=== PATIENT | female | born 1950 | race Caucasian/White ===

== ENCOUNTER 2016-06-20 11:52 | Inpatient (IN) | payer OTHER ==
[~2016-06-20] VITALS: Ht 167.6 cm; Wt 66.1 kg
[2016-06-20] MEDS: INSULIN ASPART [NOVOLOG] 3 ML PEN SC SCH ×2 (01:17→18:00)
[2016-06-20 12:00] VITALS: Ht 167.6 cm; Wt 66.1 kg
[2016-06-20] MEDS ORDERED: FAMOTIDINE 20 MG INJ IV STA (14:29)
[2016-06-20] MEDS ORDERED: SOD CHLORIDE 0.9% 1,000 ML IV STA (14:29)
[2016-06-20] MEDS ORDERED: ONDANSETRON 4 MG INJ IV STA (14:29)
[2016-06-20] MEDS ORDERED: SODIUM CHLORIDE 0.9% 1L BAG IV* STA (14:29)
[2016-06-20] MEDS ORDERED: ACETAMINOPHEN 500 MG TAB PO STA (14:31)
[2016-06-20] MEDS ORDERED: ASPI-664 PO (15:02)
[2016-06-20] MEDS ORDERED: GLIP-95 PO (15:02)
[2016-06-20] MEDS ORDERED: SITA1TAB5 PO (15:03)
[2016-06-20] MEDS ORDERED: EMPA10TA PO (15:04)
[2016-06-20 15:05] LABS: ADD SCAN DIFF NO
--- NOTE | 2016-06-20 15:05 | RADRPT ---
PROCEDURE: XR Chest. CLINICAL INDICATION: Shortness of breath. Sepsis. TECHNIQUE: Single frontal view. COMPARISON: 07/10/2008. FINDINGS: The lungs are clear. The heart size is normal. There is no pleural effusion. There is no pneumothorax. IMPRESSION: 1. Normal chest radiograph. RPTAT: QQ .Nate Fuentes MD, MD Date Time Electronically viewed and signed by .Nate Fuentes MD, on 06/20/2016 15:05 .R/
[2016-06-20 15:09] LABS: ABNORMAL IP MESSAGE 1; HEMOGLOBIN 11.8 g/dl (12.0-16.0); MEAN CORPUSCULAR HEMOGLOBIN 29.4 pg (29.0-33.0); MEAN CORPUSCULAR HGB CONC 33.7 g/dl (32.0-37.0); MEAN CORPUSCULAR VOLUME 87.1 fl (82.0-101.0); MEAN PLATELET VOLUME 11.3 fl (7.4-10.4); PLATELET COUNT 207 10^3/UL (140-415); RED BLOOD COUNT 4.02 10^6/ul (4.20-5.40); RED CELL DISTRIBUTION WIDTH 14.6 % (11.5-14.5); WHITE BLOOD COUNT 14.2 10^3/ul (4.8-10.8)
[2016-06-20 15:25] LABS: ALBUMIN 4.1 g/dl (3.3-4.9)
[2016-06-20 15:26] LABS: CHLORIDE 92 mmol/L (97-110); POTASSIUM 4.1 mmol/L (3.5-5.1); SODIUM 134 mmol/L (135-144)
[2016-06-20 15:27] LABS: ADD UMIC YES; URINE BILIRUBIN (Dip) NEGATIVE (NEGATIVE); URINE BLOOD (Dip) 2+ (NEGATIVE); URINE COLOR LT. YELLOW (YELLOW); URINE KETONES (Dip) NEGATIVE (NEGATIVE); URINE LEUKOCYTE ESTERASE (Dip) 2+ (NEGATIVE); URINE NITRITE (Dip) NEGATIVE (NEGATIVE); URINE TOTAL PROTEIN (Dip) 2+ (NEGATIVE); URINE UROBILINOGEN (Dip) 0.2 E.U./dL (0.1-1.0)
[2016-06-20 15:28] LABS: BILIRUBIN,INDIRECT 0.3 mg/dl (0-1.1); BILIRUBIN,TOTAL 0.3 mg/dl (0.2-1.3); CREATININE 1.43 mg/dl (0.44-1.00)
[2016-06-20 15:29] LABS: ALANINE AMINOTRANSFERASE 22 IU/L (13-69); ALBUMIN/GLOBULIN RATIO 1.07; ALKALINE PHOSPHATASE 148 IU/L (42-121); ANION GAP 21 (8-16); ASPARTATE AMINO TRANSFERASE 32 IU/L (15-46); BLOOD UREA NITROGEN 36 mg/dl (7-20); CALCIUM 9.7 mg/dl (8.4-10.2); CARBON DIOXIDE 25 mmol/L (21-31); CREATINE KINASE 95 IU/L (23-200); GLUCOSE 346 mg/dl (70-220); TOTAL PROTEIN 7.9 g/dl (6.1-8.1)
[2016-06-20 15:32] LABS: INR 1.12; PROTIME 14.4 Sec (12.2-14.2); PT RATIO 1.1
[2016-06-20 15:33] LABS: PARTIAL THROMBOPLASTIN TIME 38.3 Sec (25.0-35.0)
[2016-06-20 15:44] LABS: BACTERIA,URINE MANY; TROPONIN-I < 0.012 ng/ml (0.00-0.12)
[2016-06-20] MEDS ORDERED: CEFTRIAXONE 1 GM/50 ML (PMX) 50 ML IVPB ONE (16:00)
[2016-06-20 16:06] LABS: LYMPHOCYTES # 0.4 10^3/ul (0.8-2.9); MONOCYTE # 0.1 10^3/ul (0.3-0.9); NEUTROPHIL # 13.1 10^3/ul (1.6-7.5); PLATELET ESTIMATE PLT APPEAR ADEQUATE
[2016-06-20] MEDS ORDERED: SOD CHLORIDE 0.9% 1,000 ML IV SCH (17:23)
--- NOTE | 2016-06-20 17:28 | ERA ---
ER Documentation Chief Complaint Date/Time DATE: 06/20/16 TIME: 17:25 Chief Complaint abdominal pain with n/v x 3 days HPI This is a 65-year-old female who presents to the emergency room for evaluation of abdominal pain, nausea and vomiting for the past 3 days. The patient localizes her abdominal pain to the lower portion of abdomen describes as an achy pain. The patient states that her vomiting mildly relieves her abdominal pain. She denies any radiation of the pain and came to the ER for evaluation. She does state that she has been feeling weaker than normal over the past week, states that she has had chills. ROS All systems reviewed and are negative except as per history of present illness. Medications Home Meds Reported Medications Empagliflozin (Jardiance) 10 Mg Tablet, 10 MG PO DAILY, TAB 06/20/16 Sitagliptin Phos/Metformin HCl (Janumet 50-1,000 mg Tablet) 1 Each Tablet, 1 EACH PO BID, TAB 06/20/16 Aspirin* (Aspirin* EC) 81 Mg Tablet.dr, 81 MG PO DAILY, TAB 06/20/16 Glipizide* (Glipizide*) 10 Mg Tablet, 20 MG PO BID, TAB 06/20/16 Allergies Allergies: Coded Allergies: No Known Allergy (Unverified , 06/20/16) PMhx/Soc History of Surgery: Yes (mastectomy (left side)) Anesthesia Reaction: No Hx Neurological Disorder: No Hx Respiratory Disorders: No Hx Cardiac Disorders: No Hx Psychiatric Problems: No Hx Miscellaneous Medical Probl: Yes (Breast cancer, diabetes) Hx Alcohol Use: No Hx Substance Use: No Hx Tobacco Use: No Smoking Status: Never smoker Physical Exam Vitals Vital Signs Date Time Temp Pulse Resp B/P Pulse Ox O2 Delivery O2 Flow Rate FiO2 06/20/16 15:39 99.7 82 16 115/62 95 Room Air 06/20/16 15:01 Nasal Cannula 2 06/20/16 12:00 102.5 115 20 119/65 95 Physical Exam INITIAL VITAL SIGNS: Reviewed by me GENERAL: The patient is well developed and appropriate for usual state of health in no apparent distress HEENT: Dry mucous members, pupils equal, round, and reactive to light. EOMI. There is no scleral icterus. NECK: C-spine is soft and supple, there is no meningismus. There is no cervical lymphadenopathy. LUNGS: Clear to auscultation bilaterally. There are no rales, wheezes or rhonchi. HEART: Tachycardic, no murmurs, clicks, rubs or gallops. ABDOMEN: Suprapubic tenderness to palpation, soft, non-tender, non-distended. There are bowel sounds in all four quadrants. No rebound or guarding. EXTREMITIES: There is no peripheral cyanosis or edema. No focal swelling or erythema. NEUROLOGICAL: The patient moves all four extremities with 5/5 strength. Cranial nerves II - XII are intact. Normal gait. Alert and oriented SKIN: There is no apparent rash or petechiae. HEME/LYMPHATIC: There is no evidence of excessive bruising or lymphedema. PSYCHIATRIC: The patient does not appear anxious or depressed. Result Diagram: 06/20/16 1450 06/20/16 1450 Results 24 hrs Laboratory Tests Test 06/20/16 14:50 06/20/16 14:52 White Blood Count 14.210^3/ul Red Blood Count 4.0210^6/ul Hemoglobin 11.8g/dl Hematocrit 35.0% Mean Corpuscular Volume 87.1fl Mean Corpuscular Hemoglobin 29.4pg Mean Corpuscular Hemoglobin Concent 33.7g/dl Red Cell Distribution Width 14.6% Platelet Count 41609^3/UL Mean Platelet Volume 11.3fl Neutrophils % 92.0% Band Neutrophils % 4.0% Lymphocytes % 3.0% Monocytes % 1.0% Eosinophils % % Neutrophils # 13.110^3/ul Lymphocytes # 0.410^3/ul Monocytes # 0.110^3/ul Eosinophils # 10^3/ul Platelet Estimate PLT APPEAR ADEQUATE Prothrombin Time 14.4Sec Prothrombin Time Ratio 1.1 INR International Normalized Ratio 1.12 Activated Partial Thromboplast Time 38.3Sec Urine Color LT. YELLOW Urine Clarity CLOUDY Urine pH 5.5 Urine Specific Mcgraws 1.025 Urine Ketones NEGATIVE Urine Nitrite NEGATIVE Urine Bilirubin NEGATIVE Urine Urobilinogen 0.2 E.U./dL Urine Leukocyte Esterase 2+ Urine Microscopic RBC 5-10/HPF Urine Microscopic WBC >200/HPF Urine Epithelial Cells FEW Urine Bacteria MANY Urine Hemoglobin 2+ Urine Glucose 0.5%% Urine Total Protein 2+ Sodium Level 134mmol/L Potassium Level 4.1mmol/L Chloride Level 92mmol/L Carbon Dioxide Level 25mmol/L Anion Gap 21 Blood Urea Nitrogen 36mg/dl Creatinine 1.43mg/dl Glucose Level 346mg/dl Calcium Level 9.7mg/dl Total Bilirubin 0.3mg/dl Direct Bilirubin 0.00mg/dl Indirect Bilirubin 0.3mg/dl Aspartate Amino Transf (AST/SGOT) 32IU/L Alanine Aminotransferase (ALT/SGPT) 22IU/L Alkaline Phosphatase 148IU/L Creatine Kinase 95IU/L Troponin I < 0.012ng/ml Total Protein 7.9g/dl Albumin 4.1g/dl Globulin 3.80g/dl Albumin/Globulin Ratio 1.07 Lactic Acid Level 1.9mmol/L Current Medications Medications (Trade) Dose Ordered Sig/Rc Route PRN Reason Start Time Stop Time Status Last Admin Dose Admin Sodium Chloride 1950 ml 1,950 ml BOLUS OVER 2 HOURS STAT IV* 06/20/16 14:29 06/20/16 14:31 DC Sodium Chloride (NS) 1,000 ml @ 1,000 mls/hr Q1H STAT IV 06/20/16 14:29 06/20/16 15:28 DC 06/20/16 15:08 Ondansetron HCl (Zofran Inj) 4 mg ONCE STAT IV 06/20/16 14:29 06/20/16 14:38 DC 06/20/16 15:08 Famotidine (Pepcid Iv) 20 mg ONCE STAT IV 06/20/16 14:29 06/20/16 14:38 DC 06/20/16 15:08 Acetaminophen 1000 mg 1,000 mg ONCE STAT PO 06/20/16 14:31 06/20/16 14:38 DC 06/20/16 15:08 Ceftriaxone Sodium (Rocephin) 50 ml @ 100 mls/hr ONCE ONCE IVPB 06/20/16 16:00 06/20/16 16:29 DC 06/20/16 15:57 Procedures/MDM EKG: Rate/Rhythm: [Normal Sinus Rhythm] QRS, ST, T-waves: [No changes consistent w/ acute ischemia] Impression: [No evidence of ischemia or arrhythmia] Chest X-ray 1V Interpreted by me: Soft Tissue: No acute abnormalities Bones: No acute abnormalities Mediastinum/Cardiac Silhouette/Lungs: [No acute abnormalities] This 65-year-old female presents to the emergency room for evaluation of abdominal pain. When I evaluated this patient she was febrile and tachycardic. She did have a mild suprapubic tenderness to palpation on my examination. A septic workup was started on this patient. She was given greater than 30 cc/kg of IV normal saline. The patient was found to have urinary tract infection with a leukocytosis. Given this patient's fever, tachycardia, and leukocytosis with source of infection she does meet sepsis criteria. The patient was started on Rocephin after blood and urine cultures were obtained. She has no signs of CVAT or flank pain. The patient will be placed in for admission at this time for sepsis secondary to UTI. There is no need for vasopressors as she is hemodynamically stable with a mean arterial pressure greater than 65. This patient will be placed in for admission under the care of her panel physician, Dr. White Critical Care: Excluding billable procedures Time: 38 minutes Treatments/Evaluations: Close monitoring and treatment of unstable vital signs, cardiorespiratory, and neurologic status, while maintaining tight balance of fluid, respiratory, and cardiac interventions. Departure Diagnosis: Primary Impression: Sepsis Additional Impressions: Acute cystitis Renal insufficiency Normocytic anemia Uncontrolled diabetes mellitus Condition: Stable BAN BUNCH DO Jun 20, 2016 17:28
[2016-06-20] MEDS ORDERED: ACETAMINOPHEN 325 MG TAB PO PRN (17:30)
[2016-06-20] MEDS ORDERED: ONDANSETRON 4 MG INJ IV PRN ×2 (17:30→18:00)
[2016-06-20] MEDS ORDERED: INSULIN REGULAR, HUMAN 100 UNIT/1 ML 3ML VIAL SC ONE (17:30)
[2016-06-20] MEDS: SOD CHLORIDE 0.9% 1,000 ML IV SCH ×2 (18:00→23:33)
[2016-06-20] MEDS: glipiZIDE 10 MG TAB PO SCH (18:53)
[2016-06-20] MEDS ORDERED: GLUCAGON 1 MG INJ IM PRN (19:00)
[2016-06-20] MEDS ORDERED: GLUCOSE GEL 15 GRAM TUBE BUCCAL PRN (19:00)
[2016-06-20] MEDS ORDERED: GLUCOSE GEL 15 GRAM TUBE PO PRN ×2 (19:00)
[2016-06-20] MEDS ORDERED: DEXTROSE 50% 50 ML SYRINGE IV PRN ×2 (19:00)
--- NOTE | 2016-06-20 19:07 | HP ---
DATE OF ADMISSION: 06/20/2016 PRESENTING COMPLAINT: Abdominal pain, fever and chills. HISTORY OF PRESENTING COMPLAINT: A 65-year-old female with past medical history of diabetes and lef t-sided breast cancer status post radical mastectomy, about 28 years ago, who was brought to the [facility] room today with her because of chills and diffuse abdominal pain that has been going on for the last 3 days. The pain is diffusely around the abdomen, associated with a lot of nausea a nd vomiting, but no diarrhea, no blood in her stools. She has not had fever, but she has had chills . She had no passing out episodes. No headaches, no syncopal episode, no vision changes, no focal extremity weakness. There is no lower extremity swelling. REVIEW OF SYSTEMS: A 12-point review of system was done. Pertinent findings are as noted in HPI. PAST MEDICAL HISTORY: Diabetes and breast cancer status post left-sided radical mastectomy and chem o. She has been breast cancer free since. PAST SURGICAL HISTORY: As above. ALLERGIES: NO KNOWN DRUG ALLERGIES. SOCIAL HISTORY: Denies tobacco, alcohol or illicit drug use. FAMILY HISTORY: Noncontributory. REVIEW OF SYSTEMS: See HPI. HOME MEDICATIONS: The patient takes: 1. Aspirin 81 daily. 2. Jardiance 10 mg daily. 3. Glipizide 10 mg p.o. b.i.d. PHYSICAL EXAMINATION: VITAL SIGNS: Temperature 99.7 at this time. T-max of 102.5, pulse 77, respirations 16, blood press ure 119/58, saturations 100% on oxygen via nasal cannula at 2 liters a minute. GENERAL: ill looking female, alert, oriented. HEENT: Head is normocephalic. Pupils are equal and reactive. Mucous membranes dry. Posterior pha rynx clear of exudate. NECK: Supple, no JVD. CHEST: Clear to auscultation. Reduced air entry bilaterally. CARDIOVASCULAR: S1, S2, no murmurs. ABDOMEN: Diffusely soft, not overtly tender, it is sore. Normoactive bowel sounds. No distention. Not an acute abdomen. LOWER EXTREMITIES: Negative for edema. SKIN: Without rash or jaundice. PSYCHIATRIC: Anxious. LABORATORY VALUES: Leukocytosis of 14,000, anemia of 11 with hemoglobin of 11 and normal platelet count. She has 4% bandemia, 92% neutrophilia. Chemistry: Sodium is low at 134, creatinine is newl y bumped at 1.4, glucose is elevated at 346. Lactic acid is normal. LFTs are unremarkable except f or an alkaline phosphatase of 148, troponin was negative. Urinalysis is strongly suggestive of a UT I. Coagulation profile unremarkable. IMAGING: Chest x-ray shows normal chest radiograph. IMPRESSION: A 65-year-old female with: 1. Sepsis with bandemia secondary to urinary tract infection. 2. Diabetes mellitus with suboptimal control. 3. New onset acute renal insufficiency, 4. Chronic normocytic anemia. 5. History of breast cancer status post radical mastectomy for which she has been cancer free for a bout 28 years. PLAN: Admit the patient to medical surgical floor, aggressive IV hydration and broad spectrum anti biotics, send for blood as well as urine cultures. Continue home hypoglycemics. Titrate in house as indicated. An 1800 calorie diet. Avoid nephrotoxic drugs and renally dose all meds for now. Fo r prophylaxis, she will be on Pepcid and Lovenox. Dictated By: MARCIA ART MD BA/NTS Conf#: [id number] DID#: [id number]
[2016-06-20] MEDS: METOCLOPRAMIDE 10 MG INJ IV SCH ×2 (19:46→23:47)
[2016-06-20] MEDS ORDERED: hydrALAzine 20 MG INJ ONE (20:35)
[2016-06-20] MEDS ORDERED: hydrALAzine 20 MG INJ IV ONE (21:00)
[2016-06-20] MEDS: ACETAMINOPHEN 325 MG TAB PO PRN (21:13)
[2016-06-20 23:13] VITALS: TEMP 100.9
[2016-06-20] MEDS: FAMOTIDINE 20 MG TAB PO SCH (23:47)
[2016-06-20] MEDS: DOCUSATE SODIUM 100 MG CAP PO SCH (23:47)
[2016-06-21 00:58] VITALS: BP 108/55; PULSE 98; RESP 18
[2016-06-21] MEDS: INSULIN ASPART [NOVOLOG] 3 ML PEN SC SCH ×5 (01:17→20:45)
[2016-06-21] MEDS: METOCLOPRAMIDE 10 MG INJ IV SCH ×4 (05:19→23:29)
[2016-06-21 07:35] VITALS: BP 143/66; RESP 18
[2016-06-21] MEDS: glipiZIDE 10 MG TAB PO SCH ×2 (08:14→17:50)
[2016-06-21] MEDS: ACETAMINOPHEN 325 MG TAB PO PRN ×3 (08:18→23:31)
[2016-06-21] MEDS: FAMOTIDINE 20 MG TAB PO SCH ×2 (08:55→20:44)
[2016-06-21] MEDS: ASPIRIN (EC) 81 MG TAB PO SCH (08:55)
[2016-06-21] MEDS: ENOXAPARIN 30 MG/0.3 ML SYG SC SCH (08:56)
[2016-06-21] MEDS: DOCUSATE SODIUM 100 MG CAP PO SCH ×2 (08:56→20:44)
[2016-06-21] MEDS ORDERED: EMPAGLIFLOZIN 10 MG TABLET PO SCH (09:00)
[2016-06-21 10:22] LABS: ADD SCAN DIFF NO
[2016-06-21 10:26] LABS: ABNORMAL IP MESSAGE 1; HEMATOCRIT 30.8 % (37.0-47.0); HEMOGLOBIN 10.1 g/dl (12.0-16.0); MEAN CORPUSCULAR HGB CONC 32.8 g/dl (32.0-37.0); MEAN CORPUSCULAR VOLUME 88.5 fl (82.0-101.0); MEAN PLATELET VOLUME 11.4 fl (7.4-10.4); PLATELET COUNT 157 10^3/UL (140-415); RED BLOOD COUNT 3.48 10^6/ul (4.20-5.40); RED CELL DISTRIBUTION WIDTH 15.1 % (11.5-14.5); WHITE BLOOD COUNT 10.8 10^3/ul (4.8-10.8)
[2016-06-21 10:33] LABS: ALBUMIN 3.2 g/dl (3.3-4.9)
[2016-06-21 10:34] LABS: POTASSIUM 3.9 mmol/L (3.5-5.1)
[2016-06-21 10:36] LABS: BILIRUBIN,INDIRECT 0.3 mg/dl (0-1.1); BILIRUBIN,TOTAL 0.3 mg/dl (0.2-1.3); TOTAL PROTEIN 6.8 g/dl (6.1-8.1)
[2016-06-21 10:37] LABS: CHOL/HDL RATIO 3.2 RATIO; MAGNESIUM 1.9 mg/dl (1.7-2.5)
[2016-06-21 13:20] LABS: EOSINOPHILS # 0.1 10^3/ul (0.0-0.5); LYMPHOCYTES # 1.3 10^3/ul (0.8-2.9); MONOCYTE # 0.3 10^3/ul (0.3-0.9); NEUTROPHIL # 8.9 10^3/ul (1.6-7.5)
[2016-06-21 13:32] LABS: THYROID STIMULATING HORMONE 0.548 MIU/L (0.465-4.680)
[2016-06-21 15:20] VITALS: BP 129/59; PULSE 109
--- NOTE | 2016-06-21 16:02 | PN ---
Date/Time of Note Date/Time of Note DATE: 06/21/16 TIME: 15:57 Assessment/Plan VTE Prophylaxis VTE Prophylaxis Intervention: LMWH Lines/Catheters IV Catheter Type (from Nrs): Peripheral IV Urinary Cath still in place: No Assessment/Plan Assessment/Plan 1. UTI, on rocephin 2. Sepsis from UTI, on IVF and rocephin 3. Lactic acidosis, due to sepsis, on IVF 4. Bacteremia, on antibiotics 5. Diabetes mellitus, ass lantus 6. New onset acute renal insufficiency due to urosepsis, IVF, follow up with BMP 7. Chronic normocytic anemia. 8. History of breast cancer status post radical mastectomy for which she has been cancer free for about 28 years. 9. DVT prophylaxis: lovenox Subjective 24 Hr Interval Summary Free Text/Dictation fever and abdominal pain Exam/Review of Systems Vital Signs Vitals Vital Signs Date Time Temp Pulse Resp B/P Pulse Ox O2 Delivery O2 Flow Rate FiO2 06/21/16 15:20 102.7 109 129/59 96 Room Air 06/21/16 07:35 18 06/20/16 22:45 2.0 Intake and Output 06/20/16 06/20/16 06/21/16 15:00 23:00 07:00 Intake Total 2000 ml 250 ml Balance 2000 ml 250 ml Exam Constitutional: alert, oriented, well developed Psych: nl mood/affect, no complaints Head: atraumatic, normocephalic Eyes: EOMI, nl conjunctiva, nl lids ENMT: nl external ears & nose, nl lips & teeth, nl nasal mucosa & septum Neck: non-tender, supple Respiratory: clear to auscultation, normal air movement, No congested cough, No crackles/rales, No diminished breath sounds, No intercostal retraction, No labored breathing, No other, No respirations, No tactile fremitus, No wheezing Cardiovascular: nl pulses, regular rate and rhythm, No S3, No S4, No bruits, No diastolic murmur, No edema, No gallop, No irregular rhythm, No jugular venous distention (JVD), No murmurs/extra sounds, No other, No rub, No systolic murmur Gastrointestinal: nl liver, spleen, other (suprapubic tenderness), soft, No ascites, No bowel sounds, No distended, No firm, No hepatomegaly, No mass , No rebound or guarding, No splenomegaly, No surgical scars Musculoskeletal: nl extremities to inspection Extremities: normal pulses, No calf tenderness, No clubbing, No cyanosis, No edema, No other, No palpable cord, No pitting pedal edema, No tenderness Neurological: SOCIAL MEDIA STRATEGIST II-XII intact, nl mental status, nl speech, nl strength Skin: nl turgor Lymph: nl lymph nodes Results Result Diagram: 06/21/1638 06/21/1638 Results 24 hrs Laboratory Tests Test 06/20/16 17:35 06/20/16 18:40 06/20/16 19:50 06/20/16 23:41 Lactic Acid Level 1.1 1.3 Bedside Glucose 274 H 214 Test 06/21/16 08:13 06/21/16 09:38 06/21/16 11:46 Bedside Glucose 196 266 H White Blood Count 10.8 # Red Blood Count 3.48 L Hemoglobin 10.1 L Hematocrit 30.8 L Mean Corpuscular Volume 88.5 Mean Corpuscular Hemoglobin 29.0 Mean Corpuscular Hemoglobin Concent 32.8 Red Cell Distribution Width 15.1 H Platelet Count 157 # Mean Platelet Volume 11.4 H Neutrophils % 82.0 H Band Neutrophils % 2.0 Lymphocytes % 12.0 L Monocytes % 3.0 Eosinophils % 1.0 Neutrophils # 8.9 H Lymphocytes # 1.3 Monocytes # 0.3 Eosinophils # 0.1 Large Platelets FEW Sodium Level 137 Potassium Level 3.9 Chloride Level 103 # Carbon Dioxide Level 23 Anion Gap 15 Blood Urea Nitrogen 26 H Creatinine 1.00 Glucose Level 231 #H Hemoglobin A1c 8.9 H Calcium Level 9.0 Magnesium Level 1.9 Total Bilirubin 0.3 Direct Bilirubin 0.00 Indirect Bilirubin 0.3 Aspartate Amino Transf (AST/SGOT) 23 Alanine Aminotransferase (ALT/SGPT) 23 Alkaline Phosphatase 123 H Total Protein 6.8 # Albumin 3.2 L Triglycerides Level 108 Cholesterol Level 117 LDL Cholesterol, Calculated 59 HDL Cholesterol 36 Cholesterol/HDL Ratio 3.2 Thyroid Stimulating Hormone (TSH) 0.548 Medications Medications Current Medications Aspirin (Halfprin) 81 mg DAILY PO Last administered on 06/21/16 08:55; Admin Dose 81 MG; Start 06/21/16 at 09:00 Docusate Sodium (Colace) 100 mg BID PO Last administered on 06/21/16 08:56; Admin Dose 100 MG; Start 06/20/16 at 21:00 Metoclopramide HCl (Reglan) 5 mg Q6 IV Last administered on 06/21/16 12:21; Admin Dose 5 MG; Start 06/20/16 at 18:00; Stop 06/22/16 at 17:59 Ondansetron HCl (Zofran Inj) 4 mg Q6H PRN IV NAUSEA AND/OR VOMITING; Start 06/20 at 18:00 Acetaminophen 650 mg 650 mg Q6H PRN PO PAIN AND OR ELEVATED TEMP Last administered on 06/21/16 08:18; Admin Dose 650 MG; Start 06/20/16 at 18:00 Ceftriaxone Sodium (Rocephin) 50 ml @ 100 mls/hr Q24H IVPB ; Start 06/21/16 at 16:00 Enoxaparin Sodium (Lovenox) 30 mg DAILY SC Last administered on 06/21/16 08:56 ; Admin Dose 30 MG; Start 06/21/16 at 09:00 Famotidine (Pepcid) 20 mg BID PO Last administered on 06/21/16 08:55; Admin Dose 20 MG; Start 06/20/16 at 21:00 Miscellaneous Information 1 ea NOTE XX ; Start 06/20/16 at 19:00 Glucose (Glutose) 15 gm Q15M PRN PO DECREASED GLUCOSE; Start 06/20/16 at 19:00 Glucose (Glutose) 22.5 gm Q15M PRN PO DECREASED GLUCOSE; Start 06/20/16 at 19:00 Dextrose (D50w Syringe) 25 ml Q15M PRN IV DECREASED GLUCOSE; Start 06/20/16 at 19:00 Dextrose (D50w Syringe) 50 ml Q15M PRN IV DECREASED GLUCOSE; Start 06/20/16 at 19:00 Glucagon (Glucagen) 1 mg Q15M PRN IM DECREASED GLUCOSE; Start 06/20/16 at 19:00 Glucose (Glutose) 15 gm Q15M PRN BUCCAL DECREASED GLUCOSE; Start 06/20/16 at 19: 00 BART LYNN MD Jun 21, 2016 16:02
[2016-06-21] MEDS: CEFTRIAXONE 1 GM/50 ML (PMX) 50 ML IVPB SCH (16:11)
[2016-06-21] MEDS: POTASSIUM CHLORIDE 10 MEQ in SOD CHLORIDE 0.45% 1,000 ML IV SCH (17:10)
[2016-06-22] MEDS: POTASSIUM CHLORIDE 10 MEQ in SOD CHLORIDE 0.45% 1,000 ML IV SCH ×2 (02:45→13:47)
[2016-06-22] MEDS: METOCLOPRAMIDE 10 MG INJ IV SCH ×2 (05:25→11:48)
[2016-06-22] MEDS: INSULIN ASPART [NOVOLOG] 3 ML PEN SC SCH ×4 (07:46→20:39)
[2016-06-22] MEDS: glipiZIDE 10 MG TAB PO SCH ×2 (07:55→17:47)
[2016-06-22] MEDS: ACETAMINOPHEN 325 MG TAB PO PRN (07:56)
[2016-06-22] MEDS ORDERED: INSULIN GLARGINE [LANtus] 3 ML PEN SC SCH (08:00)
[2016-06-22 08:08] VITALS: BP 132/60; RESP 17
[2016-06-22] MEDS: ASPIRIN (EC) 81 MG TAB PO SCH (08:28)
[2016-06-22] MEDS: DOCUSATE SODIUM 100 MG CAP PO SCH ×2 (08:28→20:36)
[2016-06-22] MEDS: FAMOTIDINE 20 MG TAB PO SCH ×2 (08:29→20:37)
[2016-06-22] MEDS: ENOXAPARIN 30 MG/0.3 ML SYG SC SCH (08:30)
[2016-06-22 10:58] LABS: ADD SCAN DIFF NO
[2016-06-22 11:03] LABS: BASOPHILS % 0.1 % (0.0-2.0); EOSINOPHILS # 0.4 10^3/ul (0.0-0.5); EOSINOPHILS % 4.8 % (0.0-7.0); HEMATOCRIT 28.8 % (37.0-47.0); HEMOGLOBIN 9.9 g/dl (12.0-16.0); LYMPHOCYTES # 0.6 10^3/ul (0.8-2.9); LYMPHOCYTES % 6.7 % (15.0-51.0); MEAN CORPUSCULAR HEMOGLOBIN 29.6 pg (29.0-33.0); MEAN CORPUSCULAR HGB CONC 34.4 g/dl (32.0-37.0); MEAN CORPUSCULAR VOLUME 86.2 fl (82.0-101.0); MEAN PLATELET VOLUME 11.1 fl (7.4-10.4); MONOCYTE # 0.6 10^3/ul (0.3-0.9); MONOCYTES % 7.1 % (0.0-11.0); NEUTROPHIL # 7.1 10^3/ul (1.6-7.5); NEUTROPHILS % 80.2 % (39.0-77.0); PLATELET COUNT 156 10^3/UL (140-415); RED BLOOD COUNT 3.34 10^6/ul (4.20-5.40); RED CELL DISTRIBUTION WIDTH 15.2 % (11.5-14.5); WHITE BLOOD COUNT 8.9 10^3/ul (4.8-10.8)
[2016-06-22 11:11] LABS: POTASSIUM 3.9 mmol/L (3.5-5.1)
[2016-06-22 11:14] LABS: CREATININE 0.84 mg/dl (0.44-1.00)
[2016-06-22 11:15] LABS: CALCIUM 8.2 mg/dl (8.4-10.2)
[2016-06-22] MEDS: CEFTRIAXONE 1 GM/50 ML (PMX) 50 ML IVPB SCH (15:26)
--- NOTE | 2016-06-22 17:10 | PN ---
Date/Time of Note Date/Time of Note DATE: 06/22/16 TIME: 17:09 Assessment/Plan VTE Prophylaxis VTE Prophylaxis Intervention: heparin Lines/Catheters IV [facility] Peripheral IV Urinary Cath still in place: No Assessment/Plan Assessment/Plan 1. UTI, on rocephin, still spiking fever, follow up with culture 2. Sepsis from UTI, on IVF and rocephin 3. Lactic acidosis, due to sepsis, on IVF 4. Bacteremia, on antibiotics 5. Diabetes mellitus, ass lantus 6. New onset acute renal insufficiency due to urosepsis, IVF, follow up with BMP 7. Chronic normocytic anemia. 8. History of breast cancer status post radical mastectomy for which she has been cancer free for about 28 years. 9. DVT prophylaxis: lovenox Subjective 24 Hr Interval Summary Free Text/Dictation still spiking fever Exam/Review of Systems Vital Signs Vitals Vital Signs Date Time Temp Pulse Resp B/P Pulse Ox O2 Delivery O2 Flow Rate FiO2 06/22/16 15:17 100.0 06/22/16 08:08 102 17 132/60 95 06/21/16 15:20 Room Air 06/20/16 22:45 2.0 Intake and Output 06/21/16 06/21/16 06/22/16 15:00 23:00 07:00 Intake Total 150 ml 1705 ml Balance 150 ml 1705 ml Exam Constitutional: alert, oriented, well developed Psych: nl mood/affect, no complaints Head: atraumatic, normocephalic Eyes: EOMI, PERRL, nl conjunctiva, nl lids ENMT: nl external ears & nose, nl lips & teeth, nl nasal mucosa & septum Neck: non-tender, supple Respiratory: clear to auscultation, normal air movement, No congested cough, No crackles/rales, No diminished breath sounds, No intercostal retraction, No labored breathing, No other, No respirations, No tactile fremitus, No wheezing Cardiovascular: nl pulses, regular rate and rhythm, No S3, No S4, No bruits, No diastolic murmur, No edema, No gallop, No irregular rhythm, No jugular venous distention (JVD), No murmurs/extra sounds, No other, No rub, No systolic murmur Gastrointestinal: nl liver, spleen, non-tender, soft, No ascites, No bowel sounds, No distended, No firm, No hepatomegaly, No mass , No other, No rebound or guarding, No splenomegaly, No surgical scars, No tender Musculoskeletal: nl extremities to inspection Extremities: normal pulses, No calf tenderness, No clubbing, No cyanosis, No edema, No other, No palpable cord, No pitting pedal edema, No tenderness Neurological: RAG COLLECTOR II-XII intact, nl mental status, nl speech, nl strength Skin: nl turgor Lymph: nl lymph nodes Results Result Diagram: 06/22/16 1035 06/22/16 1032 Results 24 hrs Laboratory Tests Test 06/21/16 20:11 06/22/16 01:45 06/22/16 07:45 06/22/16 10:32 Bedside Glucose 223 H 145 126 Sodium Level 134 L Potassium Level 3.9 Chloride Level 103 Carbon Dioxide Level 21 Anion Gap 14 Blood Urea Nitrogen 21 H Creatinine 0.84 Glucose Level 241 H Calcium Level 8.2 L Test 06/22/16 10:35 06/22/16 11:55 White Blood Count 8.9 Red Blood Count 3.34 L Hemoglobin 9.9 L Hematocrit 28.8 L Mean Corpuscular Volume 86.2 Mean Corpuscular Hemoglobin 29.6 Mean Corpuscular Hemoglobin Concent 34.4 Red Cell Distribution Width 15.2 H Platelet Count 156 Mean Platelet Volume 11.1 H Neutrophils % 80.2 H Lymphocytes % 6.7 L Monocytes % 7.1 Eosinophils % 4.8 Basophils % 0.1 Nucleated Red Blood Cells % 0.0 Neutrophils # 7.1 Lymphocytes # 0.6 L Monocytes # 0.6 Eosinophils # 0.4 Basophils # 0.0 Nucleated Red Blood Cells # 0.0 Bedside Glucose 189 Medications Medications Current Medications Aspirin (Halfprin) 81 mg DAILY PO Last administered on 06/22/16 08:28; Admin Dose 81 MG; Start 06/21/16 at 09:00 Docusate Sodium (Colace) 100 mg BID PO Last administered on 06/22/16 08:28; Admin Dose 100 MG; Start 06/20/16 at 21:00 Metoclopramide HCl (Reglan) 5 mg Q6 IV Last administered on 06/22/16 11:48; Admin Dose 5 MG; Start 06/20/16 at 18:00; Stop 06/22/16 at 17:59 Ondansetron HCl (Zofran Inj) 4 mg Q6H PRN IV NAUSEA AND/OR VOMITING; Start 06/20 at 18:00 Acetaminophen 650 mg 650 mg Q6H PRN PO PAIN AND OR ELEVATED TEMP Last administered on 06/22/16 07:56; Admin Dose 650 MG; Start 06/20/16 at 18:00 Ceftriaxone Sodium (Rocephin) 50 ml @ 100 mls/hr Q24H IVPB Last administered on 06/22/16 15:26; Admin Dose 100 MLS/HR; Start 06/21/16 at 16:00 Enoxaparin Sodium (Lovenox) 30 mg DAILY SC Last administered on 06/22/16 08:30 ; Admin Dose 30 MG; Start 06/21/16 at 09:00 Famotidine (Pepcid) 20 mg BID PO Last administered on 06/22/16 08:29; Admin Dose 20 MG; Start 06/20/16 at 21:00 Miscellaneous Information 1 ea NOTE XX ; Start 06/20/16 at 19:00 Glucose (Glutose) 15 gm Q15M PRN PO DECREASED GLUCOSE; Start 06/20/16 at 19:00 Glucose (Glutose) 22.5 gm Q15M PRN PO DECREASED GLUCOSE; Start 06/20/16 at 19:00 Dextrose (D50w Syringe) 25 ml Q15M PRN IV DECREASED GLUCOSE; Start 06/20/16 at 19:00 Dextrose (D50w Syringe) 50 ml Q15M PRN IV DECREASED GLUCOSE; Start 06/20/16 at 19:00 Glucagon (Glucagen) 1 mg Q15M PRN IM DECREASED GLUCOSE; Start 06/20/16 at 19:00 Glucose (Glutose) 15 gm Q15M PRN BUCCAL DECREASED GLUCOSE; Start 06/20/16 at 19: 00 Insulin Glargine 12 unit 12 unit DAILY@08 SC Last administered on 06/22/16 08: 27; Admin Dose 12 UNIT; Start 06/22/16 at 08:00 Potassium Chloride/Sodium Chloride (KCl/1/2 NS) 1,005 ml @ 100 mls/hr Q10H3M IV Last administered on 06/22/16 13:47; Admin Dose 100 MLS/HR; Start 06/21/16 at 16:00 BART LYNN MD Jun 22, 2016 17:10
[2016-06-22 20:31] VITALS: BP 100/56; RESP 18
[2016-06-23] MEDS: POTASSIUM CHLORIDE 10 MEQ in SOD CHLORIDE 0.45% 1,000 ML IV SCH ×4 (00:42→23:28)
[2016-06-23] MEDS: ACETAMINOPHEN 325 MG TAB PO PRN ×2 (00:57→20:20)
[2016-06-23] MEDS: INSULIN ASPART [NOVOLOG] 3 ML PEN SC SCH ×5 (08:00→21:00)
[2016-06-23] MEDS: glipiZIDE 10 MG TAB PO SCH ×2 (08:03→17:32)
[2016-06-23 08:04] VITALS: BP 119/63; RESP 18
[2016-06-23] MEDS: INSULIN GLARGINE [LANtus] 3 ML PEN SC SCH (08:06)
[2016-06-23] MEDS: ENOXAPARIN 30 MG/0.3 ML SYG SC SCH (08:06)
[2016-06-23] MEDS: DOCUSATE SODIUM 100 MG CAP PO SCH ×2 (09:00→20:19)
[2016-06-23] MEDS: ASPIRIN (EC) 81 MG TAB PO SCH (09:03)
[2016-06-23] MEDS: FAMOTIDINE 20 MG TAB PO SCH ×2 (09:03→20:19)
[2016-06-23 10:27] LABS: ADD SCAN DIFF NO
[2016-06-23 10:43] LABS: BASOPHILS % 0.3 % (0.0-2.0); EOSINOPHILS # 0.4 10^3/ul (0.0-0.5); EOSINOPHILS % 3.9 % (0.0-7.0); HEMATOCRIT 29.5 % (37.0-47.0); HEMOGLOBIN 9.8 g/dl (12.0-16.0); LYMPHOCYTES # 0.7 10^3/ul (0.8-2.9); LYMPHOCYTES % 7.6 % (15.0-51.0); MEAN CORPUSCULAR HEMOGLOBIN 28.8 pg (29.0-33.0); MEAN CORPUSCULAR HGB CONC 33.2 g/dl (32.0-37.0); MEAN CORPUSCULAR VOLUME 86.8 fl (82.0-101.0); MEAN PLATELET VOLUME 11.1 fl (7.4-10.4); MONOCYTE # 0.8 10^3/ul (0.3-0.9); MONOCYTES % 8.6 % (0.0-11.0); NEUTROPHIL # 7.4 10^3/ul (1.6-7.5); NEUTROPHILS % 77.4 % (39.0-77.0); PLATELET COUNT 193 10^3/UL (140-415); RED CELL DISTRIBUTION WIDTH 15.6 % (11.5-14.5); WHITE BLOOD COUNT 9.6 10^3/ul (4.8-10.8)
[2016-06-23 10:54] LABS: CALCIUM 8.1 mg/dl (8.4-10.2); CREATININE 0.78 mg/dl (0.44-1.00)
--- NOTE | 2016-06-23 14:27 | PN ---
Date/Time of Note Date/Time of Note DATE: 06/23/16 TIME: 14:24 Assessment/Plan VTE Prophylaxis VTE Prophylaxis Intervention: LMWH Lines/Catheters IV C[facility]ter Type (from [facility] Peripheral IV Urinary Cath still in place: No Assessment/Plan Chief Complaint/Hosp Course 1. Sepsis with underlying gram-negative bacteremia secondary to urinary tract infection. Continue antibiotics. No evidence of any septic shock. 2. Urinary tract infection with E. coli ESBL. Will involve infectious diseases on the case. Contact isolation. 3. Type 2 diabetes mellitus. Hemoglobin A1c 8.9. Continue sliding scale insulin and Lantus insulin. Will add pre-meal insulin. 4. Acute kidney injury. Most probably secondary to hemodynamics versus others. Resolved. 5. Normocytic, normochromic anemia. Monitor H&H closely. 6. History of breast cancer status post radical mastectomy. 7. Fluids, electrolytes, and nutrition. Carbohydrate controlled diet. 8. DVT prophylaxis with subcutaneous Lovenox. 9. Gastrointestinal prophylaxis. Histamine 2 receptor blockers. 10. Plan. Call ID consult for antibiotic management. Case discussed with Dr. White Problems: Subjective 24 Hr Interval Summary Free Text/Dictation Denies any abdominal pain, dysuria, or fevers. Exam/Review of Systems Vital Signs Vitals Vital Signs Date Time Temp Pulse Resp B/P Pulse Ox O2 Delivery O2 Flow Rate FiO2 06/23/16 08:04 98.2 100 18 119/63 96 06/21/16 15:20 Room Air 06/20/16 22:45 2.0 Intake and Output 06/22/16 06/22/16 06/23/16 15:00 23:00 07:00 Intake Total 705 ml 1220 ml 1155 ml Balance 705 ml 1220 ml 1155 ml Exam General: Adequately build 65 year-old female lying in bed in no apparent distress. HEENT: Normocephalic, atraumatic. Eyes: Anicteric sclerae, conjunctivae clear. ENT: Nasal septum midline, oral mucosa moist. Neck supple, no JVD noticed. Respiratory: Bilaterally clear breath sounds. No use of accessory muscles of respiration. No adventitious breath sounds. Cardiovascular: S1, S2 heard. No murmurs or gallops. Abdomen: Soft, nontender, and nondistended. Bowel sounds positive in all 4 quadrants. Genitourinary: Deferred. Extremities: No cyanosis, no clubbing, no edema. Peripheral pulses palpable. Neurologic: Cranial nerves II through XII grossly intact. The patient is awake, alert, and oriented. Skin: Normal skin turgor. No skin rashes. Results Result Diagram: 06/23/1655 06/23/16 0955 Results 24 hrs Laboratory Tests Test 06/22/16 17:44 06/22/16 20:35 06/23/16 08:01 06/23/16 09:55 Bedside Glucose 157 132 114 White Blood Count 9.6 Red Blood Count 3.40 L Hemoglobin 9.8 L Hematocrit 29.5 L Mean Corpuscular Volume 86.8 Mean Corpuscular Hemoglobin 28.8 L Mean Corpuscular Hemoglobin Concent 33.2 Red Cell Distribution Width 15.6 H Platelet Count 193 # Mean Platelet Volume 11.1 H Neutrophils % 77.4 H Lymphocytes % 7.6 L Monocytes % 8.6 Eosinophils % 3.9 Basophils % 0.3 Nucleated Red Blood Cells % 0.0 Neutrophils # 7.4 Lymphocytes # 0.7 L Monocytes # 0.8 Eosinophils # 0.4 Basophils # 0.0 Nucleated Red Blood Cells # 0.0 Sodium Level 136 Potassium Level 4.0 Chloride Level 102 Carbon Dioxide Level 23 Anion Gap 15 Blood Urea Nitrogen 15 Creatinine 0.78 Glucose Level 209 Calcium Level 8.1 L Test 06/23/16 12:17 Bedside Glucose 157 Medications Medications Current Medications Aspirin (Halfprin) 81 mg DAILY PO Last administered on 06/23/16 09:03; Admin Dose 81 MG; Start 06/21/16 at 09:00 Docusate Sodium (Colace) 100 mg BID PO Last administered on 06/22/16 20:36; Admin Dose 100 MG; Start 06/20/16 at 21:00 Ondansetron HCl (Zofran Inj) 4 mg Q6H PRN IV NAUSEA AND/OR VOMITING; Start 06/20 at 18:00 Acetaminophen 650 mg 650 mg Q6H PRN PO PAIN AND OR ELEVATED TEMP Last administered on 06/23/16 00:57; Admin Dose 650 MG; Start 06/20/16 at 18:00 Ceftriaxone Sodium (Rocephin) 50 ml @ 100 mls/hr Q24H IVPB Last administered on 06/22/16 15:26; Admin Dose 100 MLS/HR; Start 06/21/16 at 16:00 Enoxaparin Sodium (Lovenox) 30 mg DAILY SC Last administered on 06/23/16 08:06 ; Admin Dose 30 MG; Start 06/21/16 at 09:00 Famotidine (Pepcid) 20 mg BID PO Last administered on 06/23/16 09:03; Admin Dose 20 MG; Start 06/20/16 at 21:00 Miscellaneous Information 1 ea NOTE XX ; Start 06/20/16 at 19:00 Glucose (Glutose) 15 gm Q15M PRN PO DECREASED GLUCOSE; Start 06/20/16 at 19:00 Glucose (Glutose) 22.5 gm Q15M PRN PO DECREASED GLUCOSE; Start 06/20/16 at 19:00 Dextrose (D50w Syringe) 25 ml Q15M PRN IV DECREASED GLUCOSE; Start 06/20/16 at 19:00 Dextrose (D50w Syringe) 50 ml Q15M PRN IV DECREASED GLUCOSE; Start 06/20/16 at 19:00 Glucagon (Glucagen) 1 mg Q15M PRN IM DECREASED GLUCOSE; Start 06/20/16 at 19:00 Glucose 15 gm 15 gm Q15M PRN BUCCAL DECREASED GLUCOSE; Start 06/20/16 at 19:00 Potassium Chloride/Sodium Chloride (KCl/1/2 NS) 1,005 ml @ 100 mls/hr Q10H3M IV Last administered on 06/23/16 12:14; Admin Dose 100 MLS/HR; Start 06/21/16 at 16:00 Insulin Glargine (Lantus) 14 unit DAILY@08 SC Last administered on 06/23/16 08: 06; Admin Dose 14 UNIT; Start 06/23/16 at 08:00 TATO CACERES NP Jun 23, 2016 14:27
[2016-06-23 15:25] LABS: IRON 25 ug/dl (35-150)
[2016-06-23 15:34] LABS: TOTAL IRON BINDING CAPACITY 194 ug/dl (241-421)
--- NOTE | 2016-06-23 16:30 | CONS ---
DATE OF ADMISSION: 06/20/2016 DATE OF CONSULTATION: 06/23/2016 TYPE OF CONSULTATION: Infectious Disease. REASON FOR CONSULTATION: Antibiotic management. HISTORY OF PRESENT ILLNESS: Adali Zavaleta is a 65-year-old female who comes in with abdo kiara pain, fever and chills, and is being seen for antibiotic management. Her past problems includ e: 1. Adult-onset diabetes mellitus. 2. Left-sided breast cancer, status post radical mastectomy about 28 years ago. The patient comes in with fever, chills and abdominal pain and has been going on for 3 days prior to admission. The pain is diffuse around the abdomen, associated with nausea and vomiting without dalia rrhea. On admission, her white count was 14.2, H and H 11.8 and 35, platelet count 207,000. Today, white count is 9.6. BUN and creatinine are 15/0.78. Urine is 2+ leukocyte esterase, greater than 200 white cells per high-power field. Chest x-ray: Normal chest radiograph. Microbiology: She is growing out E. coli ESBL in the urine and also in the blood. The organism is sensitive to cefepime , imipenem, gentamicin. Also sensitive to Levaquin. PAST MEDICAL HISTORY: Operations as outlined. FAMILY HISTORY: Noncontributory. SOCIAL HISTORY: She does not smoke, drink or abuse drugs. ALLERGIES: NONE TO PENICILLIN, SULFA OR FOODS. MEDICATIONS: Per chart. REVIEW OF SYSTEMS: Noncontributory. PHYSICAL EXAMINATION: GENERAL: The patient is a well-developed, well-nourished female who appears ill, in no acute distre ss. VITAL SIGNS: Stable. Temperature max of 102.5 on admission. Currently, temperature max is 101 and temperature current is 98.2. SKIN: Without generalized rash. HEENT: Within normal limits. NECK: Supple. LYMPH NODES: None palpable. CHEST: Decreased breath sounds at the bases. HEART: Without murmur or gallop. ABDOMEN: Soft. Diffusely tender without organosplenomegaly or masses. EXTREMITIES: Without cyanosis, clubbing, or edema. RECTAL AND GENITAL: Deferred. NEUROLOGIC: No focal neurological abnormalities. IMPRESSION AND PLAN: The patient has urinary tract infection with sepsis. She is currently on ceft riaxone to which the organism is resistant. We are going to switch her over to cefepime. I will di ctate my findings to the hospitalist. Dictated By: ABIGAIL QUEEN MD, JD/KOURTNYE Conf#: [id number] DID#: [id number]
[2016-06-23] MEDS: CEFEPIME 1GM/50 ML (PMX) 50 ML IVPB SCH (20:19)
[2016-06-23 21:41] VITALS: BP 111/47; RESP 18
[2016-06-24] MEDS: INSULIN ASPART [NOVOLOG] 3 ML PEN SC SCH ×8 (07:57→21:00)
[2016-06-24 08:00] VITALS: BP 122/59; RESP 20
[2016-06-24] MEDS: CEFEPIME 1GM/50 ML (PMX) 50 ML IVPB SCH ×2 (08:08→21:28)
[2016-06-24] MEDS: ASPIRIN (EC) 81 MG TAB PO SCH (08:09)
[2016-06-24] MEDS: FAMOTIDINE 20 MG TAB PO SCH ×2 (08:09→21:28)
[2016-06-24] MEDS: glipiZIDE 10 MG TAB PO SCH ×2 (08:09→17:23)
[2016-06-24] MEDS: DOCUSATE SODIUM 100 MG CAP PO SCH ×2 (08:09→21:28)
[2016-06-24] MEDS: ENOXAPARIN 30 MG/0.3 ML SYG SC SCH (08:10)
[2016-06-24] MEDS: INSULIN GLARGINE [LANtus] 3 ML PEN SC SCH (08:12)
--- NOTE | 2016-06-24 10:59 | PN ---
Date/Time of Note Date/Time of Note DATE: 06/24/16 TIME: 10:58 Assessment/Plan VTE Prophylaxis VTE Prophylaxis Intervention: LMWH Lines/Catheters IV Catheter Type (from [facility]): Peripheral IV Urinary Cath still in place: No Assessment/Plan Chief Complaint/Hosp Course 1. Sepsis with underlying gram-negative bacteremia secondary to urinary tract infection. Continue antibiotics. No evidence of any septic shock. 2. Urinary tract infection with E. coli ESBL. Will involve infectious diseases on the case. Contact isolation. 3. Type 2 diabetes mellitus. Hemoglobin A1c 8.9. Continue sliding scale insulin and Lantus insulin. Will add pre-meal insulin. 4. Acute kidney injury. Most probably secondary to hemodynamics versus others. Resolved. 5. Normocytic, normochromic anemia. Monitor H&H closely. Iron panel showing iron deficiency. Will start the patient on iron supplements. 6. History of breast cancer status post radical mastectomy. 7. Vitamin D deficiency. Continue supplements. 8. Fluids, electrolytes, and nutrition. Carbohydrate controlled diet. 9. DVT prophylaxis with subcutaneous Lovenox. 10. Gastrointestinal prophylaxis. Histamine 2 receptor blockers. 11. Plan. Continue antibiotics as per infectious diseases. Start iron supplements Case discussed with Dr. White Problems: Subjective 24 Hr Interval Summary Free Text/Dictation The patient had a febrile episode last night. Exam/Review of Systems Vital Signs Vitals Vital Signs Date Time Temp Pulse Resp B/P Pulse Ox O2 Delivery O2 Flow Rate FiO2 06/24/16 08:00 98.6 78 20 122/59 97 06/21/16 15:20 Room Air 06/20/16 22:45 2.0 Intake and Output 06/23/16 06/23/16 06/24/16 15:00 23:00 07:00 Intake Total 605 ml 1150 ml 1895 ml Balance 605 ml 1150 ml 1895 ml Exam General: Adequately build 65 year-old female lying in bed in no apparent distress. HEENT: Normocephalic, atraumatic. Eyes: Anicteric sclerae, conjunctivae clear. ENT: Nasal septum midline, oral mucosa moist. Neck supple, no JVD noticed. Respiratory: Bilaterally clear breath sounds. No use of accessory muscles of respiration. No adventitious breath sounds. Cardiovascular: S1, S2 heard. No murmurs or gallops. Abdomen: Soft, nontender, and nondistended. Bowel sounds positive in all 4 quadrants. Genitourinary: Deferred. Extremities: No cyanosis, no clubbing, no edema. Peripheral pulses palpable. Neurologic: Cranial nerves II through XII grossly intact. The patient is awake, alert, and oriented. Skin: Normal skin turgor. No skin rashes. Results Result Diagram: 06/23/16 0955 06/23/16 0955 Results 24 hrs Laboratory Tests Test 06/23/16 12:17 06/23/16 17:31 06/23/16 20:17 06/24/16 07:47 Bedside Glucose 157 170 115 107 Medications Medications Current Medications Aspirin (Halfprin) 81 mg DAILY PO Last administered on 06/24/16 08:09; Admin Dose 81 MG; Start 06/21/16 at 09:00 Docusate Sodium (Colace) 100 mg BID PO Last administered on 06/24/16 08:09; Admin Dose 100 MG; Start 06/20/16 at 21:00 Ondansetron HCl (Zofran Inj) 4 mg Q6H PRN IV NAUSEA AND/OR VOMITING; Start 06/20 at 18:00 Acetaminophen (Tylenol Tab) 650 mg Q6H PRN PO PAIN AND OR ELEVATED TEMP Last administered on 06/23/16 20:20; Admin Dose 650 MG; Start 06/20/16 at 18:00 Enoxaparin Sodium (Lovenox) 30 mg DAILY SC Last administered on 06/24/16 08:10 ; Admin Dose 30 MG; Start 06/21/16 at 09:00 Famotidine (Pepcid) 20 mg BID PO Last administered on 06/24/16 08:09; Admin Dose 20 MG; Start 06/20/16 at 21:00 Miscellaneous Information 1 ea NOTE XX ; Start 06/20/16 at 19:00 Glucose (Glutose) 15 gm Q15M PRN PO DECREASED GLUCOSE; Start 06/20/16 at 19:00 Glucose (Glutose) 22.5 gm Q15M PRN PO DECREASED GLUCOSE; Start 06/20/16 at 19:00 Dextrose (D50w Syringe) 25 ml Q15M PRN IV DECREASED GLUCOSE; Start 06/20/16 at 19:00 Dextrose (D50w Syringe) 50 ml Q15M PRN IV DECREASED GLUCOSE; Start 06/20/16 at 19:00 Glucagon (Glucagen) 1 mg Q15M PRN IM DECREASED GLUCOSE; Start 06/20/16 at 19:00 Glucose 15 gm 15 gm Q15M PRN BUCCAL DECREASED GLUCOSE; Start 06/20/16 at 19:00 Potassium Chloride/Sodium Chloride (KCl/1/2 NS) 1,005 ml @ 100 mls/hr Q10H3M IV Last administered on 06/23/16 23:28; Admin Dose 100 MLS/HR; Start 06/21/16 at 16:00 Insulin Glargine 14 unit 14 unit DAILY@08 SC Last administered on 06/24/16 08: 12; Admin Dose 14 UNIT; Start 06/23/16 at 08:00 Cefepime HCl (Maxipime 1gm/50 ml (Pmx)) 50 ml @ 100 mls/hr Q12 IVPB Last administered on 06/24/16 08:08; Admin Dose 100 MLS/HR; Start 06/23/16 at 21:00 TATO CACERES NP Jun 24, 2016 10:59
[2016-06-24] MEDS: POTASSIUM CHLORIDE 10 MEQ in SOD CHLORIDE 0.45% 1,000 ML IV SCH ×2 (11:15→13:33)
[2016-06-24] MEDS: ACETAMINOPHEN 325 MG TAB PO PRN (11:22)
[2016-06-24] MEDS: SOD FERRIC GLUC COMPLX 125 MG in SOD CHLORIDE 0.9% 100 ML IVPB SCH (12:02)
--- NOTE | 2016-06-24 16:40 | CONS ---
Date/Time of Note Date/Time of Note DATE: 06/24/16 TIME: 16:37 Assessment/Plan Assessment/Plan Chief Complaint/Hosp Course ID PROGRESS NOTE TOTAL ABX DAY # 5 => Cefepime #2 [s/p Ceftriaxone 06/20 - 06/23] Result Diagram: 06/23/16 0955 06/23/16 0955 24 H INTERVAL SUMMARY * Doing well, no fevers * Resting, VSS, NAD * URINE CULTURE Final Organism 1 ESCHERICHIA COLI (ESBL) COLONY COUNT >100,000 CFU/ml . MULTI DRUG RESISTANT ORGANISM PHONED TO TAMMY SPANN,TRISTIN, PHARM AND A COPY TO AT 1120 06/23/16 BY AD. THEE ROMAN M.I.C. RX --------- --- AMPICILLIN >=32 R CEFAZOLIN R CEFEPIME <=1 S CEFOTAXIME R CIPROFLOXACIN <=0.25 S GENTAMICIN <=1 S IMIPENEM <=0.25 S LEVOFLOXACIN 1 S NITROFURANTOIN <=16 S TOBRAMYCIN <=1 S TRIMETHOPRIM/SULFAMETHOXAZOLE <=20 S PIPERACILLIN/TAZOBACTAM <=4 S PHYSICAL EXAMINATION: GENERAL: VSS, NAD, Afebrile 65 yo F HEENT: Unremarkable NECK: Supple CHEST: Rise symmetrical, without dyspnea on observation HEART: Pulse RRR ABDOMEN: Soft EXTREMITIES: Warm ID ASSESSMENT 65 yo F w/ PMHx Breast Cancer/radical mastectomy admit with: 1. Acute GNR septicemia w/E.Coli (+)Bacteremia, elevated lactic acid to 1.9, tachycardia, transient low B/P, leukocytosis, hyperglycemia on admission=> #2 * Resolved, no current evidence of sepsis * Repeat BCx (-) 2. Acute GNR E.Coli-ESBL UTI >100,000 cfu = complicated pyelonephritis 3. Type 2 diabetes mellitus. Hemoglobin A1c 8.9. 4. Acute kidney insufficiency on admission => resolved INVASIVES: PIV ABX ALLERGY: KNDA CURRENT ABX: TOTAL ABX DAY # 5 => Cefepime #2 [s/p Ceftriaxone 06/20 - 06/23] ID RECOMMENDATIONS 1. Continue Cefepime or Ertapenem to complete 14 days ABX Rx - Today DAY # -- Last day 07/03/16 . . . Problems: Consultation Date/Type/Reason Admit Date/Time Jun 20, 2016 at 17:24 Initial Consult Date Exam/Review of Systems Vital Signs Vitals Vital Signs Date Time Temp Pulse Resp B/P Pulse Ox O2 Delivery O2 Flow Rate FiO2 06/24/16 08:00 98.6 78 20 122/59 97 06/21/16 15:20 Room Air 06/20/16 22:45 2.0 Intake and Output 06/23/16 06/23/16 06/24/16 15:00 23:00 07:00 Intake Total 605 ml 1150 ml 1895 ml Balance 605 ml 1150 ml 1895 ml Results Result Diagram: 06/23/16 0955 06/23/16 0955 Results 24 hrs Laboratory Tests Test 06/23/16 17:31 06/23/16 20:17 06/24/16 07:47 06/24/16 11:15 Bedside Glucose 170 115 107 136 Test 06/24/16 16:29 Bedside Glucose 92 Medications Medications Current Medications Aspirin (Halfprin) 81 mg DAILY PO Last administered on 06/24/16 08:09; Admin Dose 81 MG; Start 06/21/16 at 09:00 Docusate Sodium (Colace) 100 mg BID PO Last administered on 06/24/16 08:09; Admin Dose 100 MG; Start 06/20/16 at 21:00 Ondansetron HCl (Zofran Inj) 4 mg Q6H PRN IV NAUSEA AND/OR VOMITING; Start 06/20 at 18:00 Acetaminophen (Tylenol Tab) 650 mg Q6H PRN PO PAIN AND OR ELEVATED TEMP Last administered on 06/24/16 11:22; Admin Dose 650 MG; Start 06/20/16 at 18:00 Enoxaparin Sodium (Lovenox) 30 mg DAILY SC Last administered on 06/24/16 08:10 ; Admin Dose 30 MG; Start 06/21/16 at 09:00 Famotidine (Pepcid) 20 mg BID PO Last administered on 06/24/16 08:09; Admin Dose 20 MG; Start 06/20/16 at 21:00 Miscellaneous Information 1 ea NOTE XX ; Start 06/20/16 at 19:00 Glucose (Glutose) 15 gm Q15M PRN PO DECREASED GLUCOSE; Start 06/20/16 at 19:00 Glucose (Glutose) 22.5 gm Q15M PRN PO DECREASED GLUCOSE; Start 06/20/16 at 19:00 Dextrose (D50w Syringe) 25 ml Q15M PRN IV DECREASED GLUCOSE; Start 06/20/16 at 19:00 Dextrose (D50w Syringe) 50 ml Q15M PRN IV DECREASED GLUCOSE; Start 06/20/16 at 19:00 Glucagon (Glucagen) 1 mg Q15M PRN IM DECREASED GLUCOSE; Start 06/20/16 at 19:00 Glucose 15 gm 15 gm Q15M PRN BUCCAL DECREASED GLUCOSE; Start 06/20/16 at 19:00 Potassium Chloride/Sodium Chloride (KCl/1/2 NS) 1,005 ml @ 100 mls/hr Q10H3M IV Last administered on 06/24/16 11:15; Admin Dose 100 MLS/HR; Start 06/21/16 at 16:00 Insulin Glargine 14 unit 14 unit DAILY@08 SC Last administered on 06/24/16 08: 12; Admin Dose 14 UNIT; Start 06/23/16 at 08:00 Cefepime HCl 50 ml @ 100 mls/hr Q12 IVPB Last administered on 06/24/16 08:08; Admin Dose 100 MLS/HR; Start 06/23/16 at 21:00 Ferric Sodium Gluconate Complex/ Sodium Chloride (Ferrlecit/NS) 110 ml @ 100 mls/hr Q24H IVPB Last administered on 06/24/16 12:02; Admin Dose 100 MLS/HR; Start 06/24/16 at 13:00; Stop 06/26/16 at 14:05 Cholecalciferol (Vitamin D) 1,000 unit DAILY PO ; Start 06/25/16 at 09:00 ESCOBAR TORRES NP Jun 24, 2016 16:40 ESCOBAR TORRES NP Jun 24, 2016 16:40
[2016-06-24 21:24] VITALS: BP 146/70; RESP 20
[2016-06-25] MEDS: POTASSIUM CHLORIDE 10 MEQ in SOD CHLORIDE 0.45% 1,000 ML IV SCH ×3 (00:24→20:24)
[2016-06-25] MEDS ORDERED: D5W-0.45 NACL + KCL 10 MEQ 1,000 ML IV SCH (00:30)
[2016-06-25 05:49] LABS: ADD SCAN DIFF NO
[2016-06-25 05:51] LABS: ABNORMAL IP MESSAGE 1; BASOPHILS % 0.2 % (0.0-2.0); EOSINOPHILS # 0.3 10^3/ul (0.0-0.5); HEMATOCRIT 26.4 % (37.0-47.0); HEMOGLOBIN 8.7 g/dl (12.0-16.0); LYMPHOCYTES # 1.3 10^3/ul (0.8-2.9); LYMPHOCYTES % 12.9 % (15.0-51.0); MEAN CORPUSCULAR HEMOGLOBIN 28.7 pg (29.0-33.0); MEAN CORPUSCULAR VOLUME 87.1 fl (82.0-101.0); MEAN PLATELET VOLUME 10.8 fl (7.4-10.4); MONOCYTE # 0.8 10^3/ul (0.3-0.9); MONOCYTES % 8.1 % (0.0-11.0); NEUTROPHIL # 6.9 10^3/ul (1.6-7.5); NEUTROPHILS % 67.2 % (39.0-77.0); NUCLEATED RED BLOOD CELLS # 0.1 10^3/ul (0.0-0.0); NUCLEATED RED BLOOD CELLS% 0.5 /100WBC (0.0-0.0); PLATELET COUNT 216 10^3/UL (140-415); RED BLOOD COUNT 3.03 10^6/ul (4.20-5.40); RED CELL DISTRIBUTION WIDTH 15.9 % (11.5-14.5); WHITE BLOOD COUNT 10.3 10^3/ul (4.8-10.8)
[2016-06-25] MEDS: ACETAMINOPHEN 325 MG TAB PO PRN (05:54)
[2016-06-25 06:03] LABS: POTASSIUM 3.7 mmol/L (3.5-5.1)
[2016-06-25 06:06] LABS: CREATININE 0.75 mg/dl (0.44-1.00)
[2016-06-25 06:11] LABS: PHOSPHORUS 3.6 mg/dl (2.5-4.9)
[2016-06-25 06:12] LABS: MAGNESIUM 1.8 mg/dl (1.7-2.5)
[2016-06-25] MEDS: INSULIN ASPART [NOVOLOG] 3 ML PEN SC SCH ×7 (08:00→20:22)
[2016-06-25 08:04] VITALS: BP 125/58; RESP 16
[2016-06-25] MEDS: ENOXAPARIN 30 MG/0.3 ML SYG SC SCH (08:18)
[2016-06-25] MEDS: INSULIN GLARGINE [LANtus] 3 ML PEN SC SCH (08:20)
[2016-06-25] MEDS: CEFEPIME 1GM/50 ML (PMX) 50 ML IVPB SCH ×2 (08:21→20:22)
[2016-06-25] MEDS: DOCUSATE SODIUM 100 MG CAP PO SCH ×2 (08:21→20:22)
[2016-06-25] MEDS: FAMOTIDINE 20 MG TAB PO SCH ×2 (08:21→20:22)
[2016-06-25] MEDS: glipiZIDE 10 MG TAB PO SCH ×2 (08:21→17:27)
[2016-06-25] MEDS: CHOLECALCIFEROL 1,000 UNIT TAB PO SCH (08:21)
[2016-06-25] MEDS: ASPIRIN (EC) 81 MG TAB PO SCH (08:21)
--- NOTE | 2016-06-25 10:29 | PN ---
Date/Time of Note Date/Time of Note DATE: 06/25/16 TIME: 10:27 Assessment/Plan VTE Prophylaxis VTE Prophylaxis Intervention: LMWH Lines/Catheters IV [facility]ter Type (from [facility]): Peripheral IV Urinary Cath still in place: No Assessment/Plan Chief Complaint/Hosp Course Assessment and plan 1. Sepsis with underlying gram-negative bacteremia and also UTI with ESBL. Continue on antibiotics per ID recommendations. 2. UTI with ESBL. Patient appears improving on current antibiotic regimen. Continue present. 3. Type 2 diabetes. A1c noted 8.9. Continue insulin regimen. 4. Acute kidney injury. Stable at present. We'll monitor 5. Iron deficiency anemia. Continue on iron supplement 6. History of breast cancer status post radical mastectomy. Patient followed up as outpatient for this issue 7. Vitamin D deficiency. Continue on vitamin D supplement DVT prophylaxis: His Lovenox Disposition and plan: Plan for PICC line insertion. Continue with antibiotics per ID. Discharge him medically stable and cleared by consultants Discussed plan of care with Dr. Govea Problems: Subjective 24 Hr Interval Summary Free Text/Dictation No reported dysuria at this time. No specific complaints. Appears comfortable at present Exam/Review of Systems Vital Signs Vitals Vital Signs Date Time Temp Pulse Resp B/P Pulse Ox O2 Delivery O2 Flow Rate FiO2 06/25/16 08:04 98.3 66 16 125/58 96 06/21/16 15:20 Room Air Intake and Output 06/24/16 06/24/16 06/25/16 14:59 22:59 06:59 Intake Total 560 ml 870 ml 2050 ml Balance 560 ml 870 ml 2050 ml Exam General: No acute signs or symptoms of distress Eyes: pupils equal round, Anicteric sclera Neck: Supple nontender, no JVD Cardiac: S1, S2 auscultated, regular rhythm and rate Pulmonary: No coarse rhonchi or breathing auscultated GI: Abdomen soft nontender nondistended, bowel sounds active Extremities: No edema bilateral lower extremities Skin: Clean dry and intact Neurologic: Alert to person place and time and situation Results Result Diagram: 06/25/16 0525 06/25/16 0525 Results 24 hrs Laboratory Tests Test 06/24/16 11:15 06/24/16 16:29 06/24/16 21:18 06/24/16 21:46 Bedside Glucose 136 92 57 L 75 Test 06/24/16 22:06 06/24/16 22:28 06/25/16 05:25 06/25/16 07:40 Bedside Glucose 97 90 133 White Blood Count 10.3 Red Blood Count 3.03 L Hemoglobin 8.7 L Hematocrit 26.4 L Mean Corpuscular Volume 87.1 Mean Corpuscular Hemoglobin 28.7 L Mean Corpuscular Hemoglobin Concent 33.0 Red Cell Distribution Width 15.9 H Platelet Count 216 Mean Platelet Volume 10.8 H Neutrophils % 67.2 Lymphocytes % 12.9 L Monocytes % 8.1 Eosinophils % 3.0 Basophils % 0.2 Nucleated Red Blood Cells % 0.5 H Neutrophils # 6.9 Lymphocytes # 1.3 Monocytes # 0.8 Eosinophils # 0.3 Basophils # 0.0 Nucleated Red Blood Cells # 0.1 H Sodium Level 139 Potassium Level 3.7 Chloride Level 105 Carbon Dioxide Level 24 Anion Gap 14 Blood Urea Nitrogen 13 Creatinine 0.75 Glucose Level 135 # Calcium Level 8.0 L Phosphorus Level 3.6 Magnesium Level 1.8 Medications Medications Current Medications Aspirin (Halfprin) 81 mg DAILY PO Last administered on 06/25/16 08:21; Admin Dose 81 MG; Start 06/21/16 at 09:00 Docusate Sodium (Colace) 100 mg BID PO Last administered on 06/25/16 08:21; Admin Dose 100 MG; Start 06/20/16 at 21:00 Ondansetron HCl (Zofran Inj) 4 mg Q6H PRN IV NAUSEA AND/OR VOMITING; Start 06/20 at 18:00 Acetaminophen (Tylenol Tab) 650 mg Q6H PRN PO PAIN AND OR ELEVATED TEMP Last administered on 06/25/16 05:54; Admin Dose 650 MG; Start 06/20/16 at 18:00 Enoxaparin Sodium (Lovenox) 30 mg DAILY SC Last administered on 06/25/16 08:18 ; Admin Dose 30 MG; Start 06/21/16 at 09:00 Famotidine (Pepcid) 20 mg BID PO Last administered on 06/25/16 08:21; Admin Dose 20 MG; Start 06/20/16 at 21:00 Miscellaneous Information 1 ea NOTE XX ; Start 06/20/16 at 19:00 Glucose (Glutose) 15 gm Q15M PRN PO DECREASED GLUCOSE Last administered on 21:28; Admin Dose 15 GM; Start 06/20/16 at 19:00 Glucose (Glutose) 22.5 gm Q15M PRN PO DECREASED GLUCOSE; Start 06/20/16 at 19:00 Dextrose (D50w Syringe) 25 ml Q15M PRN IV DECREASED GLUCOSE; Start 06/20/16 at 19:00 Dextrose (D50w Syringe) 50 ml Q15M PRN IV DECREASED GLUCOSE; Start 06/20/16 at 19:00 Glucagon (Glucagen) 1 mg Q15M PRN IM DECREASED GLUCOSE; Start 06/20/16 at 19:00 Glucose 15 gm 15 gm Q15M PRN BUCCAL DECREASED GLUCOSE; Start 06/20/16 at 19:00 Potassium Chloride/Sodium Chloride (KCl/1/2 NS) 1,005 ml @ 100 mls/hr Q10H3M IV Last administered on 06/24/16 11:15; Admin Dose 100 MLS/HR; Start 06/21/16 at 16:00 Insulin Glargine 14 unit 14 unit DAILY@08 SC Last administered on 06/25/16 08: 20; Admin Dose 14 UNIT; Start 06/23/16 at 08:00 Cefepime HCl 50 ml @ 100 mls/hr Q12 IVPB Last administered on 06/25/16 08:21 ; Admin Dose 100 MLS/HR; Start 06/23/16 at 21:00 Ferric Sodium Gluconate Complex/ Sodium Chloride (Ferrlecit/NS) 110 ml @ 100 mls/hr Q24H IVPB Last administered on 06/24/16 12:02; Admin Dose 100 MLS/HR; Start 06/24/16 at 13:00; Stop 06/26/16 at 14:05 Cholecalciferol 1000 unit 1,000 unit DAILY PO Last administered on 06/25/16 08 :21; Admin Dose 1,000 UNIT; Start 06/25/16 at 09:00 Potassium Chloride/Dextrose/ Sod Cl (D5-1/2ns + KCl 10 Meq) 1,000 ml @ 100 mls/ hr Q10H IV Last administered on 06/25/16 00:24; Admin Dose 100 MLS/HR; Start 06/25/16 at 00:30; Stop 06/25/16 at 10:29 PARTHA HALL Jun 25, 2016 10:29
[2016-06-25] MEDS ORDERED: LIDOCAINE 1% (MDV) 20 ML INJ SC ONE (10:30)
--- NOTE | 2016-06-25 15:30 | RADRPT ---
PROCEDURE: XR Chest. CLINICAL INDICATION: Check PICC line position. TECHNIQUE: Single frontal view. COMPARISON: 06/20/2016. FINDINGS: There is a right arm PICC line with the tip in the lower superior vena cava. The lungs are clear. The heart size is normal. There is no pleural effusion. There is no pneumothorax. IMPRESSION: 1. Satisfactory position of right arm PICC line. 2. Otherwise normal chest radiograph. RPTAT: QQ .Nate Fuentes MD, MD Date Time Electronically viewed and signed by .Nate Fuentes MD, MD on 06/25/2016 15:30 .R/
[2016-06-25] MEDS ORDERED: SOD CHLORIDE 0.9% 100 ML ONE (16:06)
[2016-06-25] MEDS: SOD FERRIC GLUC COMPLX 125 MG in SOD CHLORIDE 0.9% 100 ML IVPB SCH (16:06)
--- NOTE | 2016-06-25 16:40 | RADRPT ---
PROCEDURE: Ultrasound guidance for placement of needle in right upper extremity vein. CLINICAL INDICATION: Venous access. TECHNIQUE: Limited sonography of the right upper extremity was performed. Ultrasound images were recorded and stored in the patient's medical record. COMPARISON: None. FINDINGS: The ultrasound images demonstrate a patent right upper extremity vein. The PICC line was inserted b y the PICC line nurse. IMPRESSION: 1. Ultrasound guidance for a needle placement in a right upper extremity vein. 2. The visualized right upper extremity vein is patent. RPTAT: QQ .Nate Fuentes MD, MD Date Time Electronically viewed and signed by .Nate Fuentes MD, MD on 06/25/2016 16:40 .R/
--- NOTE | 2016-06-25 18:04 | PN ---
DATE: 06/25/2016 SUBJECTIVE: No events overnight. No fevers. The patient is alert, looks comfortable. Denies pain . VITAL SIGNS: Stable. MICROBIOLOGY: Blood culture grew E. coli. Urine culture growing E. coli ESBL. ANTIMICROBIALS: The patient is on cefepime. PHYSICAL EXAMINATION: GENERAL: This is a well-developed elderly woman who is alert, in no distress. HEENT: Head atraumatic, normocephalic. Sclerae anicteric. Buccal mucosa dry. NECK: Supple, trachea midline. CHEST: Rise symmetrical. Breath sounds clear. HEART: S1, S2. ABDOMEN: Soft, bowel tones present. EXTREMITIES: No cyanosis. ASSESSMENT: 1. Escherichia coli extended-spectrum beta-lactamase urinary tract infection with bacteremia. 2. Diabetes. 3. History of breast cancer, status post mastectomy 28 years ago. PLAN: The patient remains stable. Plan for PICC line placement. Anticipate discharge on IV Invanz once daily, total antibiotics for 2 weeks. Dictated By: JUAN MOREJON EMERGENCY MANAGEMENT DIRECTOR for [employer] [facility] Conf#: [id number] DID#: [id number]
[2016-06-25 21:42] VITALS: BP 163/100; RESP 21
[2016-06-25 22:30] VITALS: BP 141/56; RESP 18
[2016-06-25] MEDS ORDERED: SENNA TAB PO ONE (22:30)
[2016-06-25] MEDS ORDERED: MAGNESIUM HYDROXIDE 30ML CUP PO ONE (22:30)
[2016-06-25] MEDS ORDERED: hydrALAzine 20 MG INJ IV PRN (22:30)
[2016-06-26] MEDS: POTASSIUM CHLORIDE 10 MEQ in SOD CHLORIDE 0.45% 1,000 ML IV SCH ×2 (05:15→16:36)
[2016-06-26] MEDS: INSULIN ASPART [NOVOLOG] 3 ML PEN SC SCH ×6 (08:00→18:05)
[2016-06-26 08:22] VITALS: BP 147/66; RESP 18
[2016-06-26] MEDS ORDERED: SENNA TAB PO SCH (09:00)
[2016-06-26] MEDS ORDERED: FER325 PO (09:22)
[2016-06-26] MEDS ORDERED: ERTA1VIA IV (09:22)
[2016-06-26] MEDS ORDERED: CHOL100062 PO (09:22)
--- NOTE | 2016-06-26 09:26 | PDOCDIS ---
Discharge Instructions DIAGNOSIS Discharge Diagnosis: 1. ESBL UTI 2. diabetes CONDITION Patient Condition: Stable HOME CARE INSTRUCTIONS: Special Diet: 1800ADA FOLLOW UP/APPOINTMENTS Appointments 1. Follow up with your primary care provider in one week PARTHA HALL Jun 26, 2016 09:25
[2016-06-26] MEDS: DOCUSATE SODIUM 100 MG CAP PO SCH (09:50)
[2016-06-26] MEDS: FAMOTIDINE 20 MG TAB PO SCH (09:50)
[2016-06-26] MEDS: glipiZIDE 10 MG TAB PO SCH ×2 (09:50→18:18)
[2016-06-26] MEDS: ASPIRIN (EC) 81 MG TAB PO SCH (09:51)
[2016-06-26] MEDS: ENOXAPARIN 30 MG/0.3 ML SYG SC SCH (09:53)
[2016-06-26] MEDS: INSULIN GLARGINE [LANtus] 3 ML PEN SC SCH (09:54)
[2016-06-26] MEDS: ACETAMINOPHEN 325 MG TAB PO PRN (09:56)
[2016-06-26] MEDS: CHOLECALCIFEROL 1,000 UNIT TAB PO SCH (10:00)
[2016-06-26] MEDS: CEFEPIME 1GM/50 ML (PMX) 50 ML IVPB SCH (10:01)
--- NOTE | 2016-06-26 10:35 | DS ---
Date/Time of Note Date/Time of Note DATE: 06/26/16 TIME: 10:33 Discharge Summary Admission/Discharge Info Admit Date/Time Jun 20, 2016 at 17:24 Discharge Date/Time Final Diagnosis 1. Sepsis with underlying gram-negative bacteremia and also UTI with ESBL. 2. UTI with ESBL. 3. Type 2 diabetes. 4. Acute kidney injury. 5. Iron deficiency anemia. 6. History of breast cancer status post radical mastectomy 7. Vitamin D deficiency. Patient Condition: Stable Hospital Course This is a 65-year-old female with history of diabetes of left-sided breast cancer status post radical mastectomy who came to [facility] due to reports of chills and diffuse abdominal pain for 3 days duration. Patient had associated nausea and vomiting with this. Patient did have urinalysis done and she was found to have sepsis from UTI. After cultures were done patient was found to have ESBL UTI and she was seen by infectious disease physician and placed on appropriate antibiotics. Patient was otherwise optimized medically. She was continued on insulin for her diabetes. She was initially noted with renal insufficiency but this did improve during her stay with IV hydration. She was continue iron for her iron anemia and vitamin D for her vitamin D deficiency. Patient did have good response to medical treatment. During her course of stay she did improve. The plan of care was discussed with patient and patient did verbalize her understanding. On the day of discharge patient was in stable condition Discussed plan of care with Discharge process time is 40 minutes Disposition: Home with home health services Home Meds Active Scripts Ertapenem Sodium (Invanz) 1 Gm Vial.port, 1 GM IV DAILY for 7 Days Prov:PARTHA HALL 06/26/16 Ferrous Sulfate* (Ferrous Sulfate*) 325 Mg Tabec, 325 MG PO DAILY for 30 Days, TAB Prov:PARTHA HALL 06/26/16 Cholecalciferol* (Vitamin D3*) 1,000 Unit Tablet, 1000 UNIT PO DAILY for 30 Days , TAB Prov:PARTHA HALL 06/26/16 Reported Medications Empagliflozin (Jardiance) 10 Mg Tablet, 10 MG PO DAILY, TAB 06/20/16 Sitagliptin Phos/Metformin HCl (Janumet 50-1,000 mg Tablet) 1 Each Tablet, 1 EACH PO BID, TAB 06/20/16 Aspirin* (Aspirin* EC) 81 Mg Tablet., 81 MG PO DAILY, TAB 06/20/16 Glipizide* (Glipizide*) 10 Mg Tablet, 20 MG PO BID, TAB 06/20/16 Follow-up Plan CONDITION Patient Condition: Stable HOME CARE INSTRUCTIONS: Special Diet: 1800ADA FOLLOW UP/APPOINTMENTS Appointments 1. Follow up with your primary care provider in one week Pending Labs Laboratory Tests Test 06/25/16 11:51 06/25/16 17:06 06/25/16 20:21 06/26/16 08:06 Bedside Glucose 148mg/dL (70-220) 103mg/dL (70-220) 142mg/dL (70-220) 109mg/dL (70-220) PARTHA HALL Jun 26, 2016 10:35
[2016-06-26] MEDS ORDERED: ERTAPENEM SODIUM 1 GM in SOD CHLORIDE 0.9% 100 ML IVPB SCH (12:00)
--- NOTE | 2016-06-26 13:16 | CONS ---
Date/Time of Note Date/Time of Note DATE: 06/26/16 TIME: 13:15 Assessment/Plan Assessment/Plan Chief Complaint/Hosp Course SUBJECTIVE: No events overnight. No fevers. The patient is alert. Denies pain. VITAL SIGNS: Stable. MICROBIOLOGY: Blood culture grew E. coli. Urine culture growing E. coli ESBL. ANTIMICROBIALS: The patient is on cefepime. PHYSICAL EXAMINATION: GENERAL: This is a well-developed elderly woman who is alert, in no distress. HEENT: Head atraumatic, normocephalic. Sclerae anicteric. Buccal mucosa dry. NECK: Supple, trachea midline. CHEST: Rise symmetrical. Breath sounds clear. HEART: S1, S2. ABDOMEN: Soft, bowel tones present. EXTREMITIES: No cyanosis. ASSESSMENT: 1. Escherichia coli extended-spectrum beta-lactamase urinary tract infection with bacteremia. 2. Diabetes. 3. History of breast cancer, status post mastectomy 28 years ago. PLAN: The patient remains stable. PICC line placed. Pending discharge on IV Invanz once daily==> last dose 07/03. staff Problems: Consultation Date/Type/Reason Admit Date/Time Jun 20, 2016 at 17:24 Initial Consult Date Type of Consultation: id Exam/Review of Systems Vital Signs Vitals Vital Signs Date Time Temp Pulse Resp B/P Pulse Ox O2 Delivery O2 Flow Rate FiO2 06/26/16 08:22 99.0 71 18 147/66 97 06/25/16 22:30 Room Air Intake and Output 06/25/16 06/25/16 06/26/16 15:00 23:00 07:00 Intake Total 1170 ml 1500 ml Balance 1170 ml 1500 ml Results Result Diagram: 06/25/16 0525 06/25/16 0525 Results 24 hrs Laboratory Tests Test 06/25/16 17:06 06/25/16 20:21 06/26/16 08:06 06/26/16 12:00 Bedside Glucose 103 142 109 135 Medications Medications Current Medications Aspirin (Halfprin) 81 mg DAILY PO Last administered on 06/26/16 09:51; Admin Dose 81 MG; Start 06/21/16 at 09:00 Docusate Sodium (Colace) 100 mg BID PO Last administered on 06/26/16 09:50; Admin Dose 100 MG; Start 06/20/16 at 21:00 Ondansetron HCl (Zofran Inj) 4 mg Q6H PRN IV NAUSEA AND/OR VOMITING; Start 06/20 at 18:00 Acetaminophen (Tylenol Tab) 650 mg Q6H PRN PO PAIN AND OR ELEVATED TEMP Last administered on 06/26/16 09:56; Admin Dose 650 MG; Start 06/20/16 at 18:00 Enoxaparin Sodium (Lovenox) 30 mg DAILY SC Last administered on 06/26/16 09:53 ; Admin Dose 30 MG; Start 06/21/16 at 09:00 Famotidine (Pepcid) 20 mg BID PO Last administered on 06/26/16 09:50; Admin Dose 20 MG; Start 06/20/16 at 21:00 Miscellaneous Information 1 ea NOTE XX ; Start 06/20/16 at 19:00 Glucose (Glutose) 15 gm Q15M PRN PO DECREASED GLUCOSE Last administered on 21:28; Admin Dose 15 GM; Start 06/20/16 at 19:00 Glucose (Glutose) 22.5 gm Q15M PRN PO DECREASED GLUCOSE; Start 06/20/16 at 19:00 Dextrose (D50w Syringe) 25 ml Q15M PRN IV DECREASED GLUCOSE; Start 06/20/16 at 19:00 Dextrose (D50w Syringe) 50 ml Q15M PRN IV DECREASED GLUCOSE; Start 06/20/16 at 19:00 Glucagon (Glucagen) 1 mg Q15M PRN IM DECREASED GLUCOSE; Start 06/20/16 at 19:00 Glucose 15 gm 15 gm Q15M PRN BUCCAL DECREASED GLUCOSE; Start 06/20/16 at 19:00 Potassium Chloride/Sodium Chloride (KCl/1/2 NS) 1,005 ml @ 100 mls/hr Q10H3M IV Last administered on 06/26/16 05:15; Admin Dose 100 MLS/HR; Start 06/21/16 at 16:00 Insulin Glargine 14 unit 14 unit DAILY@08 SC Last administered on 06/26/16 09: 54; Admin Dose 14 UNIT; Start 06/23/16 at 08:00 Cefepime HCl 50 ml @ 100 mls/hr Q12 IVPB Last administered on 06/26/16 10:01 ; Admin Dose 100 MLS/HR; Start 06/23/16 at 21:00 Ferric Sodium Gluconate Complex/ Sodium Chloride (Ferrlecit/NS) 110 ml @ 100 mls/hr Q24H IVPB Last administered on 06/25/16 16:06; Admin Dose 100 MLS/HR; Start 06/24/16 at 13:00; Stop 06/26/16 at 14:05 Cholecalciferol (Vitamin D) 1,000 unit DAILY PO Last administered on 06/26/16 10:00; Admin Dose 1,000 UNIT; Start 06/25/16 at 09:00 IV Flush (NS 10 ml) 10 ml PRN PRN IV IV PROTOCOL; Start 06/25/16 at 16:00 Senna (Senokot) 2 tab BID PO Last administered on 06/26/16 10:00; Admin Dose 2 TAB; Start 06/26/16 at 09:00 Hydralazine HCl (Apresoline) 10 mg Q4H PRN IV SBP > 160; Start 06/25/16 at 22: 30 JUAN MOREJON NP Jun 26, 2016 13:16
[2016-06-26] MEDS: SOD FERRIC GLUC COMPLX 125 MG in SOD CHLORIDE 0.9% 100 ML IVPB SCH (13:49)
== END 2016-06-26 18:57 | disposition home health service (06) | DRG 872 ==
LOC: E/R 11:52 → PP2 17:24
PROVIDERS: ADMIT Family Medicine; ATTEND Family Medicine
PROC: 02HV33Z Insertion of Infusion Device into Superior Vena Cava, Percutaneous Approach (ICD-10-PCS; principal; 2016-06-20)
DX: A41.9 Sepsis, unspecified organism (principal); N17.9 Acute kidney failure, unspecified; E87.2 Acidosis; E11.65 Type 2 diabetes mellitus with hyperglycemia; N39.0 Urinary tract infection, site not specified; E55.9 Vitamin D deficiency, unspecified; D50.9 Iron deficiency anemia, unspecified; B96.20 Unspecified Escherichia coli [E. coli] as the cause of diseases classified elsewhere; D63.8 Anemia in other chronic diseases classified elsewhere; Z90.12 Acquired absence of left breast and nipple; Z85.9 Personal history of malignant neoplasm, unspecified
CPT/HCPCS: 36415; 36569; 71010; 76937; 80048; 80053; 80061; 80076; 81001; 81003; 82550; 82553; 82652; 82728; 82962; 83036; 83540; 83605; 83735; 84100; 84443; 84484; 85025; 85610; 85730; 87040; 87086; 87400; 93005; 96365; 96372; 96375; J0360; J0692; J0696; J1335; J1650; J1815; J2405; J2765; J2916; J3480; J7030

== ENCOUNTER 2016-07-13 01:11 | Emergency (ER) | payer OTHER ==
[~2016-07-13] VITALS: Ht 162.6 cm; Wt 61.0 kg
[~2016-07-13 01:11] MED LIST: ASPI-664 PO; CHOL100062 PO; EMPA10TA PO; ERTA1VIA IV; FER325 PO; GLIP-95 PO; SITA1TAB5 PO
[2016-07-13 01:16] VITALS: Ht 162.6 cm; Wt 61.0 kg
[2016-07-13 05:06] LABS: ADD SCAN DIFF NO
[2016-07-13 05:07] LABS: BASOPHILS % 0.2 % (0.0-2.0); EOSINOPHILS # 0.1 10^3/ul (0.0-0.5); EOSINOPHILS % 0.5 % (0.0-7.0); HEMATOCRIT 33.8 % (37.0-47.0); HEMOGLOBIN 11.1 g/dl (12.0-16.0); LYMPHOCYTES # 1.3 10^3/ul (0.8-2.9); LYMPHOCYTES % 12.8 % (15.0-51.0); MEAN CORPUSCULAR HEMOGLOBIN 29.4 pg (29.0-33.0); MEAN CORPUSCULAR HGB CONC 32.8 g/dl (32.0-37.0); MEAN CORPUSCULAR VOLUME 89.4 fl (82.0-101.0); MONOCYTE # 0.9 10^3/ul (0.3-0.9); MONOCYTES % 8.6 % (0.0-11.0); NEUTROPHIL # 7.6 10^3/ul (1.6-7.5); NEUTROPHILS % 77.1 % (39.0-77.0); PLATELET COUNT 366 10^3/UL (140-415); RED BLOOD COUNT 3.78 10^6/ul (4.20-5.40); RED CELL DISTRIBUTION WIDTH 14.5 % (11.5-14.5); WHITE BLOOD COUNT 9.8 10^3/ul (4.8-10.8)
[2016-07-13 05:18] LABS: INR 0.98
[2016-07-13 05:19] LABS: PARTIAL THROMBOPLASTIN TIME 31.5 Sec (25.0-35.0)
[2016-07-13 05:22] LABS: CHLORIDE 94 mmol/L (97-110); SODIUM 135 mmol/L (135-144)
[2016-07-13 05:23] LABS: POTASSIUM 4.1 mmol/L (3.5-5.1)
[2016-07-13 05:25] LABS: ALANINE AMINOTRANSFERASE 29 IU/L (13-69); ALBUMIN/GLOBULIN RATIO 0.85; ALKALINE PHOSPHATASE 156 IU/L (42-121); ANION GAP 20 (8-16); ASPARTATE AMINO TRANSFERASE 30 IU/L (15-46); BILIRUBIN,INDIRECT 0.4 mg/dl (0-1.1); BILIRUBIN,TOTAL 0.4 mg/dl (0.2-1.3); BLOOD UREA NITROGEN 34 mg/dl (7-20); CARBON DIOXIDE 25 mmol/L (21-31); CREATININE 1.05 mg/dl (0.44-1.00); GLUCOSE 244 mg/dl (70-220); TOTAL PROTEIN 8.7 g/dl (6.1-8.1)
[2016-07-13 05:26] LABS: CALCIUM 9.7 mg/dl (8.4-10.2)
--- NOTE | 2016-07-13 05:38 | RADRPT ---
PROCEDURE: CHEST - 1 VIEW CLINICAL INDICATION: 65-year-old female with shortness of breath and sepsis. TECHNIQUE: A single frontal AP supine portable view of the chest was performed. The images were r eviewed on a PACS workstation. COMPARISON: Chest x-ray June 25, 2016. FINDINGS: The cardiomediastinal silhouette is prominent but without significant interval change. There is no evidence for an infiltrate. There is no evidence for congestive heart failure. There is no evidence for pneumothorax. The osseous structures are intact. IMPRESSION: No evidence for active cardiopulmonary disease. .Duran Watkins MD, Date Time Electronically viewed and signed by .Duran Watkins MD, on 07/13/2016 05:38 .M/
[2016-07-13 05:40] LABS: TROPONIN-I < 0.012 ng/ml (0.00-0.12)
[2016-07-13] MEDS ORDERED: ONDANSETRON 4 MG INJ IV ONE (06:25)
[2016-07-13] MEDS ORDERED: SOD CHLORIDE 0.9% 1,000 ML IV ONE ×2 (06:30)
[2016-07-13] MEDS ORDERED: FAMOTIDINE 20 MG INJ IV ONE (06:30)
[2016-07-13 09:03] LABS: ADD UMIC YES; URINE BILIRUBIN (Dip) NEGATIVE (NEGATIVE); URINE BLOOD (Dip) 1+ (NEGATIVE); URINE COLOR LT. YELLOW (YELLOW); URINE GLUCOSE (Dip) NEGATIVE (NEGATIVE); URINE KETONES (Dip) TRACE (NEGATIVE); URINE LEUKOCYTE ESTERASE (Dip) 2+ (NEGATIVE); URINE NITRITE (Dip) NEGATIVE (NEGATIVE); URINE TOTAL PROTEIN (Dip) TRACE (NEGATIVE); URINE UROBILINOGEN (Dip) 0.2 E.U./dL (0.1-1.0)
[2016-07-13 09:17] LABS: BACTERIA,URINE MODERATE; URINE RBCS 0-2 /HPF (0)
[2016-07-13] MEDS ORDERED: NITR-58 PO (10:08)
[2016-07-13] MEDS ORDERED: ONDA8TAB14 PO (10:08)
--- NOTE | 2016-07-13 10:12 | ERD ---
ER Documentation Chief Complaint Date/Time DATE: 07/13/16 TIME: 10:08 Chief Complaint vomiting x 3 days HPI This is 65-year-old female who is admitted here recently with sepsis with positive blood cultures and positive urine cultures. Patient was treated with antibiotics in-house and sent home. The patient says she finished her antibiotic course about 3 days ago but has had nausea and vomiting for the past 3 days having vomiting is nonbilious and nonbloody 2-3 times a day. No epigastric pain no fever no diarrhea no chest pain no cough no shortness of breath no rash. She says she will vomit after eating more but will also vomit when she has not eaten. No dysuria no hematuria ROS All systems reviewed and are negative except as per history of present illness. Medications Home Meds Active Scripts Nitrofurantoin Monohyd Macrocr* (Macrobid*) 100 Mg Capsr, 100 MG PO BID for 10 Days, CAP Prov:JUAN RAMON VILLARREALSTGILESS Nydia DO 07/13/16 Ondansetron (Ondansetron Odt) 8 Mg Tab.rapdis, 8 MG PO Q6H Y for NAUSEA AND/OR VOMITING, #10 TAB Prov:MALU VILLARREAL DO 07/13/16 Ertapenem Sodium (Invanz) 1 Gm Vial.port, 1 GM IV DAILY for 7 Days Prov:PARTHA HALL 06/26/16 Ferrous Sulfate* (Ferrous Sulfate*) 325 Mg Tabec, 325 MG PO DAILY for 30 Days, TAB Prov:PARTHA HALL 06/26/16 Cholecalciferol* (Vitamin D3*) 1,000 Unit Tablet, 1000 UNIT PO DAILY for 30 Days , TAB Prov:PARTHA HALL 06/26/16 Reported Medications Empagliflozin (Jardiance) 10 Mg Tablet, 10 MG PO DAILY, TAB 06/20/16 Sitagliptin Phos/Metformin HCl (Janumet 50-1,000 mg Tablet) 1 Each Tablet, 1 EACH PO BID, TAB 06/20/16 Aspirin* (Aspirin* EC) 81 Mg Tablet.dr, 81 MG PO DAILY, TAB 06/20/16 Glipizide* (Glipizide*) 10 Mg Tablet, 20 MG PO BID, TAB 06/20/16 Allergies Allergies: Coded Allergies: No Known Allergy (Unverified , 07/13/16) PMhx/Soc Anesthesia Reaction: No Hx Neurological Disorder: No Hx Respiratory Disorders: No Hx Cardiac Disorders: No Hx Psychiatric Problems: No Hx Miscellaneous Medical Probl: Yes (DM, BREAST CA) Hx Alcohol Use: No Hx Substance Use: No Hx Tobacco Use: No Smoking Status: Never smoker FmHx Family History: No coronary disease Physical Exam Vitals Vital Signs Date Time Temp Pulse Resp B/P Pulse Ox O2 Delivery O2 Flow Rate FiO2 07/13/16 08:00 98.8 80 20 130/67 97 Room Air 07/13/16 04:30 98.8 87 20 143/76 97 Room Air 07/13/16 01:16 99.2 95 20 115/63 96 Physical Exam Const: Well-developed, well-nourished Head: Atraumatic, normocephalic Eyes: Normal Conjunctiva, PERRLA, EOMI, normal sclera, no nystagmus ENT: Normal External Ears, Nose and Mouth, moist mucus membranes. Neck: Full range of motion. No meningismus, no lymphadenopathy. Resp: Clear to auscultation bilaterally, no wheezing, rhonchi, rales Cardio: Regular rate and rhythm, no murmurs, S1 S2 present Abd: Soft, non tender x 4, non distended. Normal bowel sounds, no guarding or rebound, no pulsitile abdominal masses or bruits Skin: No petechiae or rashes, no ecchymosis , no maculopapular rash Back: No midline or flank tenderness Ext: No cyanosis, or edema, FROM x 4, normal inspection, neurovascularly intact x 4 Neur: Awake and alert, STR 5/5 x 4, sensation intact x 4, no focal findings, cerebellum intact Psych: Normal Mood and Affect Result Diagram: 07/13/1643907/13/16439 Results 24 hrs Laboratory Tests Test 07/13/16 04:40 07/13/16 08:00 07/13/16 08:22 White Blood Count 9.810^3/ul Red Blood Count 3.7810^6/ul Hemoglobin 11.1g/dl Hematocrit 33.8% Mean Corpuscular Volume 89.4fl Mean Corpuscular Hemoglobin 29.4pg Mean Corpuscular Hemoglobin Concent 32.8g/dl Red Cell Distribution Width 14.5% Platelet Count 46725^3/UL Mean Platelet Volume 10.0fl Neutrophils % 77.1% Lymphocytes % 12.8% Monocytes % 8.6% Eosinophils % 0.5% Basophils % 0.2% Nucleated Red Blood Cells % 0.0/100WBC Neutrophils # 7.610^3/ul Lymphocytes # 1.310^3/ul Monocytes # 0.910^3/ul Eosinophils # 0.110^3/ul Basophils # 0.010^3/ul Nucleated Red Blood Cells # 0.010^3/ul Prothrombin Time 13.0Sec Prothrombin Time Ratio 1.0 INR International Normalized Ratio 0.98 Activated Partial Thromboplast Time 31.5Sec Sodium Level 135mmol/L Potassium Level 4.1mmol/L Chloride Level 94mmol/L Carbon Dioxide Level 25mmol/L Anion Gap 20 Blood Urea Nitrogen 34mg/dl Creatinine 1.05mg/dl Glucose Level 244mg/dl Lactic Acid Level 1.2mmol/L 0.6mmol/L Calcium Level 9.7mg/dl Total Bilirubin 0.4mg/dl Direct Bilirubin 0.00mg/dl Indirect Bilirubin 0.4mg/dl Aspartate Amino Transf (AST/SGOT) 30IU/L Alanine Aminotransferase (ALT/SGPT) 29IU/L Alkaline Phosphatase 156IU/L Troponin I < 0.012ng/ml Total Protein 8.7g/dl Albumin 4.0g/dl Globulin 4.70g/dl Albumin/Globulin Ratio 0.85 Urine Color LT. YELLOW Urine Clarity CLOUDY Urine pH 5.5 Urine Specific [place] 1.015 Urine Ketones TRACE Urine Nitrite NEGATIVE Urine Bilirubin NEGATIVE Urine Urobilinogen 0.2 E.U./dL Urine Leukocyte Esterase 2+ Urine Microscopic RBC 0-2/HPF Urine Microscopic WBC >50/HPF Urine Epithelial Cells MODERATE Urine Bacteria MODERATE Urine Hemoglobin 1+ Urine Glucose NEGATIVE% Urine Total Protein TRACE Current Medications Medications (Trade) Dose Ordered Sig/Rc Route PRN Reason Start Time Stop Time Status Last Admin Dose Admin Sodium Chloride 1,000 ml @ 1,000 mls/hr Q1H ONCE IV 07/13/16 06:30 07/13/16 07:29 DC 07/13/16 07:29 Sodium Chloride (NS) 1,000 ml @ 1,000 mls/hr Q1H ONCE IV 07/13/16 06:30 07/13/16 07:29 DC 07/13/16 07:31 Ondansetron HCl (Zofran Inj) 4 mg ONCE ONCE IV 07/13/16 06:25 07/13/16 06:27 DC 07/13/16 07:24 Famotidine (Pepcid Iv) 20 mg ONCE ONCE IV 07/13/16 06:30 07/13/16 06:31 DC 07/13/16 07:24 Procedures/MDM The patient's white blood count is normal. The patient does show some prerenal azotemia consistent with volume depletion. The patient has more than 50 white blood cells in the urine however there is epithelial cells and it is a contaminated specimen. Patient does not have a fever no elevated white count no signs of sepsis with a lactic acid of 1.2. Patient's likely vomiting from some gastric distress. Family thinks that she may have eaten something bad. Urine culture from last visit shows sensitivities to Macrobid. I will prescribe this to cover the possibility of urinary tract infection is returning. We will also prescribe Zofran. After 2 L of fluid the patient is feeling much better discharged home with Macrobid and Zofran Departure Diagnosis: Primary Impression: UTI (urinary tract infection) Urinary tract infection type: acute cystitis Hematuria presence: without hematuria Qualified Code: N30.00 - Acute cystitis without hematuria Additional Impression: Vomiting Vomiting type: unspecified Vomiting Intractability: non-intractable Nausea presence: with nausea Qualified Code: R11.2 - Non-intractable vomiting with nausea, unspecified vomiting type Condition: Stable Patient Instructions: Understanding Urinary Tract Infections (UTIs), Vomiting ( 6Y-Adult) MALU VILLARREAL DO Jul 13, 2016 10:12
[2016-07-13 10:21] VITALS: BP 134/70; PULSE 83; RESP 20; TEMP 98.6
== END 2016-07-13 10:23 | disposition home or self-care (01) ==
LOC: E/R 01:11
DX: N30.00 Acute cystitis without hematuria (principal); E11.9 Type 2 diabetes mellitus without complications; R06.02 Shortness of breath; Z79.82 Long term (current) use of aspirin; Z79.84 Long term (current) use of oral hypoglycemic drugs; Z85.3 Personal history of malignant neoplasm of breast
CPT/HCPCS: 36415; 71010; 80053; 81001; 81003; 83605; 84484; 85025; 85610; 85730; 87040; 93005; 96374; 96375; J2405; J7030; Z7502; Z7610

== ENCOUNTER 2017-06-07 19:58 | Inpatient (IN) | END 2017-06-23 14:35 | disposition home or self-care (01) | DRG 252 ==

== ENCOUNTER 2017-07-10 01:33 | Emergency (ER) | END 2017-07-10 05:42 | disposition home or self-care (01) ==

== ENCOUNTER 2017-08-03 14:32 | Inpatient (IN) | END 2017-08-06 17:25 | disposition home or self-care (01) | DRG 544 ==

== ENCOUNTER → 2017-08-22 | Outpatient (CLI) | END | disposition home or self-care (01) ==

== ENCOUNTER 2017-08-28 11:46 | Emergency (ER) | END 2017-08-28 16:17 | disposition home or self-care (01) ==

== ENCOUNTER → 2017-09-04 | Outpatient (CLI) | END | disposition home or self-care (01) ==

== ENCOUNTER 2017-10-03 10:28 | Day surgery (SDC) | END 2017-10-03 15:25 | disposition home or self-care (01) ==

== ENCOUNTER 2018-01-07 16:07 | Inpatient (IN) | END 2018-01-09 16:10 | disposition home or self-care (01) | DRG 375 ==

== ENCOUNTER 2018-02-25 10:14 | Day surgery (SDC) | END 2018-02-25 14:58 | disposition home or self-care (01) ==

== ENCOUNTER 2018-08-19 10:00 | Day surgery (SDC) | payer OTHER ==
[~2018-08-19] VITALS: Ht 157.5 cm; Wt 65.4 kg
[2018-08-19] VITALS (15 sets, daily range): BP systolic 141–177; BP diastolic 65–106; PULSE 66–86; RESP 12–18; Ht 157.5 cm; Wt 65.4 kg
[~2018-08-19 10:00] MED LIST changes: -ASPI-664 PO; -CHOL100062 PO; -EMPA10TA PO; -ERTA1VIA IV; +FURO20TA3 PO; -GLIP-95 PO; +GLIP10TA14 PO; +HYDR25TA6 PO; +LETR2.5T PO; +PANT40TA4 PO; -SITA1TAB5 PO
[2018-08-19] MEDS ORDERED: AMIT10TA6 PO (10:53)
--- NOTE | 2018-08-19 10:53 | PREAC ---
Date/Time of Note Date/Time of Note DATE: 08/19/18 TIME: 10:51 Anesthesia Eval and Record Evaluation Time Pre-Procedure Interview DATE: 08/19/18 TIME: 10:51 Age 67 Sex female NPO: 8 hrs Preoperative diagnosis hydronephrosis Planned procedure cystoscopy, removal and replacement of ureteral stents Past Medical History Past Medical History: Includes Cardio: HTN, Dyslipidemia Endo: Diabetes Heme: Other (Hx breast cancer s/p mastectomy) Surgery & Anesthesia Issues No known issue Meds Anticoagulation: No Beta Suzi within 24 hr: No Reason Beta Suzi not given: Pt. not on B-Suzi Reported Medications Amitriptyline Hcl* (Amitriptyline Hcl*) 10 Mg Tablet, 10 MG PO QHS, #30 TAB 08/19/18 Furosemide* (Furosemide*) 20 Mg Tablet, 20 MG PO DAILY, #60 TAB 01/07/18 Pantoprazole* (Pantoprazole*) 40 Mg Tablet.dr, 40 MG PO DAILY, TAB 01/07/18 Hydrochlorothiazide* (Hydrochlorothiazide*) 25 Mg Tab, 25 MG PO DAILY, #30 TAB 11/23/17 Letrozole* (Letrozole*) 2.5 Mg Tablet, 2.5 MG PO DAILY, TAB 11/23/17 Glipizide* (Glipizide*) 10 Mg Tablet, 10 MG PO AC BREAKFAST DINNER, TAB 11/23/17 Discontinued Reported Medications Ferrous Sulfate* (Ferrous Sulfate*) 325 Mg Tabec, 325 MG PO BID, TAB 01/07/18 Current Medications Cefazolin Sodium/ Dextrose 50 ml @ 100 mls/hr PRE-OP ONCE IVPB ; Start 08/19/18 at 12:00; Stop 08/19/18 at 12:29 Meds reviewed: Yes Allergies Coded Allergies: No Known Allergy (Unverified , 08/19/18) Allergies Reviewed: Yes Labs/Studies Labs Reviewed: Reviewed by anesthesiologist test: N/A Studies: ECG, CXR Pre-procedure Exam Airway: Adequate mouth opening, Adequate thyromental dist Mallampati: Mallampati II Teeth: Normal Lung: Normal Heart: Normal ASA Physical Status ASA physical status: 3 Emergency: None Planned Anesthetic General/MAC: LMA Planned Pain Management Parenteral pain med, Local by surgeon Pre-operative Attestations Prior to commencing anesthesia and surgery, the patient was re-evaluated, there was verification of: *The patient's identity *The results of appropriate recent lab work and preoperative vital signs *The above evaluation not changing prior to induction *Anesthetic plan, risk benefits, alternative and complications discussed with patient/family; questions answered; patient/family understands, accepts and wishes to proceed. JAE NORIEGA Aug 19, 2018 10:52
[2018-08-19] MEDS ORDERED: CEFAZOLIN 1 GM INJ ONE (11:21)
[2018-08-19] MEDS ORDERED: PROPOFOL 20 ML ONE (11:21)
[2018-08-19] MEDS ORDERED: FENTAnyl 50 MCG/ML VIAL ONE (11:21)
[2018-08-19] MEDS ORDERED: LIDOCAINE 2% (SDV) 5 ML INJ ONE (11:21)
[2018-08-19] MEDS ORDERED: CEFAZOLIN 2 GM/50 ML (PMX) 50 ML IVPB ONE (12:00)
[2018-08-19] MEDS ORDERED: SOD CHLORIDE 0.9% 1,000 ML IV SCH (12:00)
--- NOTE | 2018-08-19 12:29 | HPN ---
Date/Time of Note Date/Time of Note DATE: 08/19/18 TIME: 12:29 Interval H&P Admission Note Pt. seen H&P reviewed: No system changes ALEX GAO MD Aug 19, 2018 12:29
[2018-08-19] MEDS ORDERED: DESFLURANE 15 MIN ONE (12:30)
[2018-08-19] MEDS ORDERED: IOHEXOL 300MG/ML 30 ML BTL ONE (12:44)
[2018-08-19] MEDS ORDERED: DEXAMETHASONE 4 MG/ML 5 ML INJ ONE (12:45)
[2018-08-19] MEDS ORDERED: METOCLOPRAMIDE 10 MG INJ ONE (12:45)
[2018-08-19] MEDS ORDERED: FAMOTIDINE 20 MG INJ ONE (12:45)
[2018-08-19] MEDS ORDERED: ONDANSETRON 4 MG INJ ONE (12:45)
[2018-08-19] MEDS ORDERED: OXYCODONE/ACETAMINOPHEN (5/325) TAB PO PRN ×2 (13:30)
[2018-08-19] MEDS ORDERED: ONDANSETRON 4 MG INJ IV PRN (13:30)
[2018-08-19] MEDS ORDERED: MEPERIDINE 25 MG INJ IV PRN (13:30)
[2018-08-19] MEDS ORDERED: FENTAnyl 50 MCG/ML VIAL IV PRN ×3 (13:30)
--- NOTE | 2018-08-19 13:39 | OPR ---
Date/Time of Note Date/Time of Note DATE: 08/19/18 TIME: 13:30 Operative Report Procedure Date: Aug 19, 2018 Preoperative Diagnosis Bilateral hydronephrosis Postoperative Diagnosis Same Operation/Procedure Performed Cystoscopy, removal of bilateral JJ stent, bilateral retrograde pyelograms, insertion of bilateral JJ stents 6 [place] by 20 cm long Surgeon see signature line Recovery Rn Caren oT Anesthesia Type: general Anesthesiologist: JAE NORIEGA Estimated Blood Loss: none Transfusion none Specimen Urine for culture and sensitivity from the bladder Grafts/Implants Bilateral ureteral JJ stents 6 [place] by 20 cm long Complications none Pt Condition Post Procedure: stable Disposition: PACU Indications Bilateral hydronephrosis secondary to ureteral obstruction by metastatic breast cancer. Procedure Description The patient was brought to the operating room and given general anesthesia. The patient was then positioned in the lithotomy position. Patient was given 2 g of Ancef IV at the start of the procedure. Timeout was done and the patient was identified by her name, birthdate and the procedure. The genital area was then prepped and draped in the usual sterile manner. #22 [place] cystoscope sheath was introduced into the bladder and urine was collected for culture and sensitivity. Fluoroscopy was done and the 2 old JJ stents were visualized. The distal end of the left ureteral JJ stent was grasped and removed. Same was done with the right old ureteral JJ stent. Then I used a 10 [place] cone-tip ureteral catheter and did bilateral retrograde pyelograms. There is marked left hyd ronephrosis secondary to upper ureteral obstruction and same also was noted on the right side. Then I introduced the pusher of the JJ stent into the left ureteral orifice and through that I advanced the 0.[address] up to the kidney. Then I remove the pusher out and advanced a 6 [place] by 20 cm long JJ stent on the zip wire. I had its proximal end curling into the kidney and the distal end curling into the bladder. Same procedure was done for the right side. Both stents were in good position. The bladder was emptied and the patient was transferred to recovery room in a stable and satisfactory condition ALEX GAO MD Aug 19, 2018 13:39
--- NOTE | 2018-08-19 13:44 | PAC ---
Date/Time of Note Date/Time of Note DATE: 08/19/18 TIME: 13:44 Post-Anesthesia Notes Post-Anesthesia Note Last documented vital signs BP 167/68 HR 80 Spo2 100% Temp 98.8rr 16 Vital Signs Date Temp Pulse Resp B/P (MAP) Pulse Ox O2 O2 Flow FiO2 Time Delivery Rate 08/19/18 97.4 70 16 141/65 100 Room Air 11:47 (90) Activity: WNL Respiratory function: WNL Cardiovascular function: WNL Mental status: Baseline Pain reasonably controlled: Yes Hydration appropriate: Yes Nausea/Vomiting absent: Yes JAE NORIEGA Aug 19, 2018 13:44
[2018-08-19] MEDS ORDERED: HYDROCODONE/APAP (5/325) TAB PO PRN (14:00)
[2018-08-19] MEDS ORDERED: LABETALOL HCL 20MG INJ IV PRN (14:00)
== END 2018-08-19 15:30 | disposition home or self-care (01) ==
LOC: SDS 10:00
PROVIDERS: ATTEND Urology
DX: N13.1 Hydronephrosis with ureteral stricture, not elsewhere classified (principal); I10 Essential (primary) hypertension; E11.9 Type 2 diabetes mellitus without complications
CPT/HCPCS: 52332; 74430; 82962; 87086; C2617; J0690; J1100; J2405; J2765; J3010; Q9967; Z7512; Z7610